=== PATIENT | female | born 1950 | race Caucasian/White ===

== ENCOUNTER → 2017-01-30 | Outpatient (CLI) | payer OTHER ==
--- NOTE | 2017-01-30 13:09 | MAMMOGRAPHY REPORT ---
BILATERAL DIGITAL SCREENING MAMMOGRAM WITH CAD: 01/30/2017 CLINICAL HISTORY: Routine screening. TECHNIQUE: Bilateral CC, MLO and repeat MLO views were obtained with more anterior compression. Curre nt study was also evaluated with a Computer Aided Detection (CAD) system. COMPARISON: Comparison is made to exams dated: 01/28/2016 mammogram, 12/18/2014 mammogram, 09/23/2013 ma mmogram, 09/10/2012 mammogram, 09/08/2011 mammogram, and 02/19/2010 mammogram - [facility] nter. BREAST COMPOSITION: There are scattered areas of fibroglandular density in both breasts. FINDINGS: There is a stable intramammary lymph node in the right upper outer posterior breast. A be nign rim calcification in the anterior right breast and a few punctate microcalcifications in the lef t breast. No suspicious mass, architectural distortion or cluster of microcalcifications is seen. IMPRESSION: ACR BI-RADS CATEGORY 2: BENIGN There is no mammographic evidence of malignancy. A 1 year screening mammogram is recommended. The pa tient will receive written notification of the results. Approximately 10% of breast cancers are not detected with mammography. A negative mammographic report should not delay biopsy if a clinically suggestive mass is present. Marely Minor M.D. ay/:01/30/2017 12:07:36 Prototype Fabricator: Jean-Claude DE LA TORRE(Misael)(M), [facility] letter sent: Normal 1/2 BI-RADS Code: ACR BI-RADS Category 2: Benign
== END | disposition home or self-care (01) ==
LOC: C.MAMM 10:47
PROVIDERS: ATTEND Family Medicine
DX: Z12.31 Encounter for screening mammogram for malignant neoplasm of breast (principal)

== ENCOUNTER 2023-07-04 07:21 | Observation (INO) ==
--- NOTE | 2023-07-04 07:36 | Emergency Department Note ---
ED Provider Note History of Present Illness Chief Complaint: Chest Pain Stated Complaint: CHEST PAIN, PAIN IN BACK Time Seen by Provider: 07/04/23 07:28 73-year-old female who presents to the emergency department with her daughter for evaluation of central chest pain radiating into the back. The patient reports that she noticed the discomfort last evening. The patient reports that she had difficulty sleeping last night, reporting that she had worsening pain when laying down. Patient reports that the pain is worsened with deep breathing. When asked if she has worsening pain with movement, she rotated the back and reported some mild lower central chest discomfort as well. She denies any shortness of breath. The patient is concerned that she has reflux, and takes omeprazole. Patient denies history of hypertension or hypercholesterolemia. Her father in his early 50s from a heart attack. The patient rates her discomfort a 6 out of 10. Home Medications Medication Instructions Recorded Confirmed Type aspirin 81 mg tablet,delayed 81 mg PO DAILY 03/16/21 07/04/23 History release calcium carbonate 600 mg-vitamin 1 tab PO DAILY 03/16/21 07/04/23 History D3 10 mcg (400 unit) tablet (Calcium 600 + D(3)) cholecalciferol (vitamin D3) 25 25 mcg PO DAILY 03/16/21 07/04/23 History mcg (1,000 unit) capsule (Vitamin D3) hydrochlorothiazide 25 mg tablet 25 mg PO DAILY 03/16/21 07/04/23 History multivitamin 1 tab PO DAILY 03/16/21 07/04/23 History omeprazole 20 mg capsule,delayed 20 mg PO DAILYBB 03/16/21 07/04/23 History release gabapentin 300 mg capsule 300 mg PO TID 07/04/23 07/04/23 History mirabegron 50 mg tablet,extended 50 mg PO QAM 07/04/23 07/04/23 History release 24 hr (Myrbetriq) famotidine 10 mg tablet (Acid 10 mg PO BID #30 tabs 07/05/23 Rx Fiber [employer] (famotidine)) ibuprofen 200 mg tablet 200 mg PO TID 7 days #21 tabs 07/05/23 Rx rosuvastatin 5 mg tablet 5 mg PO HS #30 tabs 07/05/23 Rx Allergies Allergy/AdvReac Type Severity Reaction Status Date / Time Sulfa (Sulfonamide Allergy Intermediate Rash Verified 03/16/21 00:27 Antibiotics) Past Med/Surg History Medical History Mnire's disease GERD (gastroesophageal reflux disease) Overactive bladder Social History Smoking Status: Unknown if ever smoked Second Hand Exposure: No; Do You Dip or Chew Tobacco: No; Hx Alcohol Use: No Hx Substance Use: No Preferred Language: Vincentian Communication Ability: Effective Painter Aircraft Required: No Beliefs That Will Affect Care: None Current Living Situation: Family Current Living Situation Comment: lives with daughter Feels Safe at Home: Yes Assistive Devices: None Physical Exam Vital Signs Vital Signs - 24 hr 07/04/23 07:25 07/04/23 07:33 07/04/23 07:40 Temperature 36.8 C Temperature Source Temporal Artery Scan Pulse Rate 95 H 80 Pulse Rate [Right Finger] Pulse Rate from SpO2 Sensor Pulse Rhythm Regular Regular Pulse Rhythm [Right Finger] Pulse Strength Normal Pulse Strength [Right Finger] Respiratory Rate 18 20 Respiratory Effort / Characteristics Non-Labored Spontaneous Respiratory Depth Normal Respiratory Pattern Regular Blood Pressure 162/131 H Blood Pressure [Left Arm] Blood Pressure Mean 141 Blood Pressure Mean [Left Arm] Blood Pressure Position Sitting Blood Pressure Position [Left Arm] Pulse Oximetry 100 95 95 Oxygen Delivery Method Room Air Room Air Sepsis Recent Fever Within 48 Hours No Sepsis New/Unexplained Change in Mental Status No Sepsis Action Taken by Nursing No Action Required 07/04/23 08:00 07/04/23 08:35 07/04/23 08:45 Temperature Temperature Source Pulse Rate 89 78 Pulse Rate [Right Finger] 79 Pulse Rate from SpO2 Sensor 83 Pulse Rhythm Pulse Rhythm [Right Finger] Regular Pulse Strength Pulse Strength [Right Finger] Normal Respiratory Rate 20 17 Respiratory Effort / Characteristics Non-Labored Spontaneous Respiratory Depth Normal Respiratory Pattern Regular Blood Pressure Blood Pressure [Left Arm] 172/72 H Blood Pressure Mean Blood Pressure Mean [Left Arm] 105 Blood Pressure Position Blood Pressure Position [Left Arm] Sitting Pulse Oximetry 95 90 Oxygen Delivery Method Room Air Sepsis Recent Fever Within 48 Hours Sepsis New/Unexplained Change in Mental Status Sepsis Action Taken by Nursing 07/04/23 09:00 07/04/23 09:00 07/04/23 09:30 Temperature Temperature Source Pulse Rate 82 82 Pulse Rate [Right Finger] Pulse Rate from SpO2 Sensor 81 81 Pulse Rhythm Pulse Rhythm [Right Finger] Pulse Strength Pulse Strength [Right Finger] Respiratory Rate 19 17 Respiratory Effort / Characteristics Respiratory Depth Respiratory Pattern Blood Pressure 150/78 H Blood Pressure [Left Arm] Blood Pressure Mean 88 Blood Pressure Mean [Left Arm] Blood Pressure Position Blood Pressure Position [Left Arm] Pulse Oximetry 99 98 Oxygen Delivery Method Sepsis Recent Fever Within 48 Hours Sepsis New/Unexplained Change in Mental Status Sepsis Action Taken by Nursing 07/04/23 09:46 07/04/23 10:03 07/04/23 10:05 Temperature Temperature Source Pulse Rate 78 Pulse Rate [Right Finger] Pulse Rate from SpO2 Sensor 78 80 Pulse Rhythm Pulse Rhythm [Right Finger] Pulse Strength Pulse Strength [Right Finger] Respiratory Rate 19 Respiratory Effort / Characteristics Respiratory Depth Respiratory Pattern Blood Pressure 157/71 H 143/64 H Blood Pressure [Left Arm] Blood Pressure Mean 124 90 Blood Pressure Mean [Left Arm] Blood Pressure Position Blood Pressure Position [Left Arm] Pulse Oximetry 98 100 Oxygen Delivery Method Sepsis Recent Fever Within 48 Hours Sepsis New/Unexplained Change in Mental Status Sepsis Action Taken by Nursing 07/04/23 10:18 07/04/23 10:18 07/04/23 10:30 Temperature Temperature Source Pulse Rate 73 72 Pulse Rate [Right Finger] Pulse Rate from SpO2 Sensor 73 72 Pulse Rhythm Pulse Rhythm [Right Finger] Pulse Strength Pulse Strength [Right Finger] Respiratory Rate 21 16 Respiratory Effort / Characteristics Respiratory Depth Respiratory Pattern Blood Pressure 143/64 H Blood Pressure [Left Arm] Blood Pressure Mean 114 Blood Pressure Mean [Left Arm] Blood Pressure Position Blood Pressure Position [Left Arm] Pulse Oximetry 98 98 Oxygen Delivery Method Sepsis Recent Fever Within 48 Hours Sepsis New/Unexplained Change in Mental Status Sepsis Action Taken by Nursing 07/04/23 12:20 Temperature Temperature Source Pulse Rate Pulse Rate [Right Finger] 81 Pulse Rate from SpO2 Sensor Pulse Rhythm Pulse Rhythm [Right Finger] Pulse Strength Pulse Strength [Right Finger] Respiratory Rate 17 Respiratory Effort / Characteristics Respiratory Depth Respiratory Pattern Blood Pressure Blood Pressure [Left Arm] 151/69 H Blood Pressure Mean Blood Pressure Mean [Left Arm] 96 Blood Pressure Position Blood Pressure Position [Left Arm] Pulse Oximetry 96 Oxygen Delivery Method Sepsis Recent Fever Within 48 Hours Sepsis New/Unexplained Change in Mental Status Sepsis Action Taken by Nursing CONSTITUTIONAL: Healthy and well nourished. Patient does not appear in any acute distress. HEENT: No scleral icterus or conjunctival injection/pallor. NECK: Full active range of motion without discomfort. LYMPHATICS: No cervical chain adenopathy. RESPIRATORY: Clear to auscultation bilaterally with no wheezing, crackles, rhonchi or stridor. CARDIOVASCULAR: Regular rate and rhythm with a grade 3 out of 6 systolic ejection murmur best heard at the right and left upper sternal borders. GASTROINTESTINAL: Bowel sounds present in all quadrants. MUSCULOSKELETAL: Full range of motion of all joints without discomfort. Patient has mild lower extremity edema without any significant pretibial pitting edema. INTEGUMENTARY: No rash or other significant dermatologic conditions noted. HEMATOLOGIC: No ecchymosis or petechiae. PSYCHIATRIC: Positive affect. NEUROLOGIC: No focal neurologic deficits noted. Course Course Patient history and physical exam were performed. Nurses notes were reviewed. Vital signs were reviewed, showing an elevated blood pressure 162/131. IV access was established, and labs were drawn. An ECG was performed and was grossly normal. The patient was placed on library monitor while in the emergency department. Portable chest x-ray did not show a widened mediastinum, pneumothorax or pneumonia. Review of labs did not show any significant abnormalities. Troponin was normal. The patient was hydrated with a normal saline 500 cc bolus, and was also administered Maalox. Upon reassessment, the patient reported that her chest pain was progressively worsening, and now has a headache. At this point, I elected to do the chest CT angiography to rule out dissection. The patient was administered IV morphine and Zofran. CT imaging did not show evidence for aortic dissection, pneumonia, pneumothorax, pericarditis or other acute findings. 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 Repeat ECG does show some inverted T waves now in lead III, otherwise no other concerning conduction abnormalities or ST elevation. Troponin continues to remain normal. Upon reevaluation, the patient reported that she was still having significant discomfort. At this point, the patient was administered sublingual nitroglycerin and IV Tylenol. Throughout the patient's workup, I did discuss the case with Dr. Palacios, ED attending physician who helped to formulate plan of care, and has recommended consultation with hospitalist for further cardiac rule out. The case was then discussed with the patient, who is in agreement to do so. The case was discussed with the [facility] hospitalist (Dr. Lynn), who came to the emergency department for further evaluation. Please see hospitalist dictations for further treatment and final disposition. Administered Medications Discontinued Medications Al Hydrox/Mg Hydrox/Simethicone (Aluminum/Magnesium Susp 30 Ml Udc) 30 ml PO NOW STA Stop: 07/04/23 08:09 Last Admin: 07/04/23 08:34 Dose: 30 ml Documented By: ANANT Aspirin (Aspirin 81 Mg Ectab) 81 mg PO DAILY HERNÁN Stop: 08/04/23 08:59 Last Admin: 07/05/23 08:00 Dose: 81 mg Documented By: CHRISTIAN Calcium/Vitamin D (Calcium 600mg + Vit D 400 Iu Tab) 1 tab PO DAILY HERNÁN Stop: 08/04/23 08:59 Last Admin: 07/05/23 08:01 Dose: 1 tab Documented By: CHRISTIAN Gabapentin (Gabapentin 300 Mg Cap) 300 mg PO TID HERNÁN Stop: 08/03/23 15:30 Last Admin: 07/05/23 13:54 Dose: 300 mg Documented By: Admin: 07/05/23 07:59 Dose: 300 mg Documented By: Admin: 07/04/23 21:13 Dose: 300 mg Documented By: Admin: 07/04/23 16:06 Dose: 300 mg Documented By: DARRIN Heparin Sodium (Porcine) (Heparin Sod 5,000 Unit/0.5 Ml Vial) 5,000 units SQ Q12 HERNÁN Stop: 08/03/23 20:59 Last Admin: 07/05/23 08:01 Dose: 5,000 units Documented By: Admin: 07/04/23 21:13 Dose: 5,000 units Documented By: YEMI Hydrochlorothiazide (Hydrochlorothiazide 25 Mg Tab) 25 mg PO DAILY HERNÁN Stop: 08/04/23 08:59 Last Admin: 07/05/23 08:00 Dose: 25 mg Documented By: CHRISTIAN Sodium Chloride (Nss) 500 mls @ 999 mls/hr IV .Q31M ONE Stop: 07/04/23 08:38 Last Infusion: 07/04/23 10:23 Dose: Infused Documented By: Admin: 07/04/23 08:34 Dose: 999 mls/hr Documented By: ANANT Acetaminophen (Ofirmev) 1,000 mg in 100 mls @ 400 mls/hr IV NOW STA Stop: 07/04/23 11:45 Last Infusion: 07/04/23 12:45 Dose: Infused Documented By: Admin: 02/20/24 12:25 Dose: 400 mls/hr Documented By: SIXTO Ibuprofen (Ibuprofen 200 Mg Tab) 200 mg PO TID HERNÁN Stop: 08/04/23 11:09 Last Admin: 07/05/23 13:54 Dose: 200 mg Documented By: Admin: 07/05/23 11:55 Dose: 200 mg Documented By: CHRISTIAN Ioversol (Optiray 320 125ml) 118 ml IV ONCE ONE Stop: 07/04/23 09:59 Last Admin: 07/04/23 09:53 Dose: 118 ml Documented By: TONY Ketorolac Tromethamine (Ketorolac Tromethamine 15 Mg/Ml Vial) 15 mg IV NOW ONE Stop: 07/04/23 12:21 Last Admin: 07/04/23 12:46 Dose: 15 mg Documented By: SIXTO Morphine Sulfate (Morphine Sulfate 2 Mg/Ml Carp) 2 mg IV NOW STA Stop: 07/04/23 09:26 Last Admin: 07/04/23 10:12 Dose: 2 mg Documented By: ANANT Multivitamins (Multivitamin Tab) 1 tab PO DAILY HERNÁN Stop: 08/04/23 08:59 Last Admin: 07/05/23 08:00 Dose: 1 tab Documented By: CHRISTIAN Nitroglycerin (Nitroglycerin Sl 0.4 Mg/Tab Tab) 0.4 mg SL NOW STA Stop: 07/04/23 11:32 Last Admin: 07/04/23 12:25 Dose: 0.4 mg Documented By: SIXTO Ondansetron HCl (Ondansetron Inj 2 Mg/Ml 2 Ml Vial) 4 mg IV NOW STA Stop: 07/04/23 09:26 Last Admin: 07/04/23 10:13 Dose: 4 mg Documented By: ANANT Pantoprazole Sodium (Pantoprazole 40 Mg Tab) 40 mg PO QAM HERNÁN Stop: 08/04/23 08:59 Last Admin: 07/05/23 08:00 Dose: 40 mg Documented By: CHRISTIAN Tramadol HCl (Tramadol Hcl 50 Mg Tablet) 50 mg PO Q6H PRN PRN Reason: Mod-Sev Pain (Scale 4-10) Stop: 08/03/23 21:12 Last Admin: 07/04/23 21:21 Dose: 50 mg Documented By: YEMI Vibegron (Vibegron 75 Mg Tab) 75 mg PO DAILY HERNÁN Stop: 08/04/23 08:59 Last Admin: 07/05/23 08:01 Dose: 75 mg Documented By: CHRISTIAN Vitamin D (Cholecalciferol 25 Mcg (1000 Units) Tab) 25 mcg PO DAILY [facility] Stop: 08/04/23 08:59 Last Admin: 07/05/23 08:00 Dose: 25 mcg Documented By: CHRISTIAN Medical Decision Making Medical Records Attestation: I reviewed the patient's medical records. Home Medications was personally reviewed by me Laboratory Data Attestation: I reviewed the patient's lab results. 07/05/23 06:24 07/05/23 06:24 Lab Results 07/04/23 07/04/23 Range/Units 07:45 09:44 WBC 10.11 (4.8-10.8) K/ul RBC 4.54 (4.20-5.40) M/uL Hgb 11.8 L (12.0-16.0) g/dl Hct 37.1 (37.0-47.0) % MCV 81.7 (80.0-100.0) fL MCH 26.0 (25.0-34.0) pg MCHC 31.8 L (32.0-36.0) g/dL RDW Std Deviation 38.2 (36.4-46.3) fL RDW Coeff of Emily 12.9 (11.5-14.5) % Plt Count 222 (130-400) K/uL MPV 10.8 (9.4-12.4) fL Immature Gran % (Auto) 0.3 % Neut % (Auto) 80.5 % Lymph % (Auto) 11.4 % Ceiba % (Auto) 7.2 % Eos % (Auto) 0.4 % Baso % (Auto) 0.2 % Neut # (Auto) 8.14 H (1.40-6.50) K/uL Lymph # (Auto) 1.15 L (1.20-3.40) K/uL Ceiba # (Auto) 0.73 H (0.11-0.59) K/uL Eos # (Auto) 0.04 (0.00-0.50) K/uL Baso # (Auto) 0.02 (0.00-0.20) K/uL Immature Gran # (Auto) 0.03 (0.01-0.20) K/uL ESR 40 H (0-30) mm/hr PT 10.9 (9.0-12.0) Seconds INR 1.0 (0.9-1.1) APTT 27 (21-31) Seconds PTT Ratio 1.0 Sodium 139 (136-145) mmol/L Potassium 3.8 (3.5-5.1) mmol/L Chloride 102 (98-107) mmol/L Carbon Dioxide 32 (21-32) mmol/L Anion Gap 5 (3-11) BUN 15 (6-23) mg/dl Creatinine 0.75 (0.6-1.2) mg/dl Est Cr Clr Drug Dosing 71.2 ml/min Est GFR ( Amer) 91.0 ml/min Est GFR (Non-Af Amer) 78.5 ml/min BUN/Creatinine Ratio 20.0 (10-20) Glucose 129 H (70-99(Fasting)) mg/dl Calcium 10.1 (8.6-10.3) mg/dl Total Bilirubin 0.6 (0.2-1.0) mg/dl AST 16 (13-39) U/L ALT 15 (7-52) U/L Alkaline Phosphatase 73 (34-104) U/L Troponin I High Sens 5.6 6.3 (0-14) pg/ml C-Reactive Protein 2.40 H (0-0.5) mg/dl Total Protein 7.8 (6.0-8.3) gm/dl Albumin 4.6 (3.4-5.0) gm/dl Globulin 3.2 (2.5-4.0) gm/dl Albumin/Globulin Ratio 1.4 (0.9-2) Lipase 11 (11-82) U/L Imaging Data Attestation: I personally reviewed and interpreted this imaging study as follows: My Impression: My interpretation of a portable chest x-ray did not show evidence for pneumonia, pneumothorax or cardiomegaly. Chest CT angiography did not show evidence for aortic dissection, pneumothorax, pericarditis or other acute findings. 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 Radiologist reports were also reviewed with concurrence. Radiologist's Impression: Chest X-Ray 07/04/23 07:33 XR chest 1V portable HISTORY: Chest pain, nonspecific COMPARISON: None. FINDINGS: The lungs are clear. Cardiac silhouette is normal in size. No pleural effusions. No pneumothorax. IMPRESSION: No acute process. ACT 112: Negative or not required by law. Electronically signed by: Abelardo Moeller M.D. 07/04/2023 9:29 AM Chest CTA 07/04/23 09:22 CHEST CTA for AORTIC DISSECTION CT DOSE: 1468. mGy.cm HISTORY: Chest and back pain. Assess for an aortic dissection. TECHNIQUE: Multiaxial CT images of the chest were performed both before and after the intravenous administration of contrast to evaluate the aorta. 3D/MIP images were also obtained. Sagittal and coronal reformations were also reviewed. A dose lowering technique was utilized adhering to the principles of ALARA. COMPARISON STUDY: None. FINDINGS: Noncontrast imaging through the chest shows no evidence for an intramural hematoma within the thoracic aorta. There is a normal caliber thoracic aorta with no evidence for a dissection. Mild calcified plaque within the thoracic aorta. The central pulmonary arteries are patent. No acute fractures within the chest. No pneumothorax. The central airways are patent. Mild dependent changes seen at the lung bases. A 3 mm subpleural nodule on the left major fissure best seen on image 90. A 6 mm nodule within the base of the lingula on image 131. This is partially obscured by the motion artifact. No focal lung consolidations to suggest a pneumonia. No evidence for pulmonary edema. Punctate calcified granuloma within the right lung apex. Normal thyroid gland. Limited views of the upper abdomen demonstrate a normal liver and adrenal glands. Punctate calcified granulomas seen within the spleen. Normal esophagus. The heart is normal in size. No pleural or pericardial effusions. No mediastinal or hilar lymphadenopathy. IMPRESSION: 1. No evidence for an aortic dissection. 2. No focal lung consolidations to suggest a pneumonia. 3. A 6 mm indeterminate pulmonary nodule within the lingula. Please refer to the chart below for recommended follow-up. 4. Additional findings as described above. Please refer to below summary of Fleischner criteria recommendations for follow- up of incidental CT nodules (Jai Nguyen, Guidelines for management of small pulmonary nodules detected on CT scans: A statement from the Fleischner Society, Radiology 237: [id number].) SOLID NODULES Solitary nodule size: <6 mm * Low risk patients: no follow-up needed * high risk patients: optional CT at 12 months Solitary nodule size: 6-8 mm * Low risk patients: follow-up at 6-12 months, then consider further follow-up at 18-24 months * high risk patients: initial follow-up CT at 6-12 months and then at 18-24 months if no change Solitary nodule size: >8 mm * either low or high risk patients - consider follow-up CT at 3 months, and/or CT-PET, and/or biopsy Multiple nodules size: <6 mm * Low risk patients: no routine follow-up * high risk patients: optional CT at 12 months Multiple nodules size: 6-8 mm * Low risk patients: follow-up at 3-6 months, then consider further follow-up at 18-24 months * high risk patients: follow-up at 3-6 months, then at 18-24 months if no change Multiple nodules size: >8 mm * Low risk patients: follow-up at 3-6 months, then consider further follow-up at 18-24 months * high risk patients: follow-up at 3-6 months, then at 18-24 months if no change Note: newly detected indeterminate nodule in persons 35 years of age or older. * Low risk patients: minimal or absent history of smoking and/or other known risk factors * high risk patients: history of smoking or of other known risk factors (e.g. first degree relative with lung cancer, or exposure to asbestos, radon, uranium) * if a nodule up to 8 mm is partly solid or is ground glass further follow-up is required after 24 months to exclude possible slow growing adenocarcinoma (KIRK) SUBSOLID NODULES Solitary pure ground-glass nodule * nodule size <6 mm - no CT follow-up required * nodule size >=6 mm - follow-up CT at 6-12 months, then every 2 years until 5 years Solitary part-solid nodule * nodule size <6 mm - no CT follow-up required * nodule size >=6 mm - follow-up CT at 3-6 months. If unchanged, and solid component remains <6 mm, then annual follow-up for 5 years Multiple subsolid nodules * nodule size <6 mm - follow-up CT at 3-6 months, consider further follow-up at 2 and 4 years if stable * nodule size >=6 mm - follow-up CT at 3-6 months, subsequent management based on the most suspicious nodule(s) ACT 112: Positive. There are findings on this exam that require communication between the performing entity and the patient following Patient Test Result Information Act ([place] Act 112) guidelines. Electronically signed by: Abelardo Moeller M.D. 07/04/2023 10:53 AM ECG Data Attestation: I personally reviewed and interpreted this ECG as follows: Indication: + chest pain Rate (beats per minute): 80 Rhythm: + normal sinus ECG Intervals/blocks: + Incomplete right bundle branch block, + Normal QRS, + Normal QT and + Normal IN ECG [place]: + Normal ECG ST segments: + Normal ST segments Comparison ECG Date: no prior available Additional Comments: Repeat ECG approximately 3 hours later shows a normal sinus rhythm of 72 bpm with an inverted T wave in precordial lead III, otherwise no other concerning findings or signs of infarct. MDM Narrative Cardiac monitoring: An order was placed for continuous cardiac monitoring. The monitor shows a rate of 80 bpm with a normal sinus rhythm. hall monitor history was reviewed throughout the evaluation, and no dysrhythmias were noted. See ED Course section for further details of today's visit. The patient presents with complaint of substernal pain radiating into the back. Her workup today, including ECG and troponin x 2, repeated 3 hours apart, does not show any evidence for infarct. Because of the patient's discomfort radiating from the substernal region to the back, as well as worsening discomfort while in the emergency department, chest CT angiography was performed and did not show evidence for dissection, pneumothorax, pericarditis or other concerning findings. Review of labs did not show any acute coagulopathies. CMP was normal other than a mildly elevated random glucose. The patient reports a prior history of reflux, but reports that this does feel different. It is noted that IV Pepcid and Maalox did not provide any relief of symptoms. Abdomen exam is otherwise benign. HEART score is 1, only given the fact that her father had a history of myocardial infarction at a young age. Patient denies any shortness of breath, and PERC score is negative. Given the patient's persistent chest pain, I did feel that further observation and cardiac rule out is warranted. The case was discussed with Dr. Palacios, ED physician, who helped to formulate plan of care, and agrees with observation for cardiac rule out. Attending Attestation: Benjamin Palacios I have reviewed the advanced practitioner's documentation and agree with the plan of care. CTA chest reviewed w/o finding of dissection. Trop x2 reassuring but still with pain. Plan for observation. I accept the responsibility for the associated risk of managing the patient. Impression Substernal chest pain, Headache, History of gastroesophageal reflux (GERD) Discharge Plan Visit Data Chief Complaint: Chest Pain Stated Complaint: CHEST PAIN, PAIN IN BACK ED Provider: Bebeto Palacios ED Midlevel Provider: Raheem Ocampo Discharge Problem: Substernal chest pain, Headache, History of gastroesophageal reflux (GERD) Patient Disposition: Admitted As Inpatient Discharge Instructions Interventions: ED Discharge Assessment Last Done: 07/04/23 20:46
[2023-07-04 08:00] LABS: Basophils # (auto) 0.02 K/uL (0.00-0.20); Basophils % (auto) 0.2 %; Eosinophils # (auto) 0.04 K/uL (0.00-0.50); Eosinophils % (auto) 0.4 %; Hematocrit (blood only) 37.1 % (37.0-47.0); Hemoglobin 11.8 g/dl (12.0-16.0); Immature Granulocytes # (auto) 0.03 K/uL (0.01-0.20); Immature Granulocytes % (auto) 0.3 %; Lymphocytes # (auto) 1.15 K/uL (1.20-3.40); Lymphocytes % (auto) 11.4 %; Mean Corpuscular Hgb Conc 31.8 g/dL (32.0-36.0); Mean Corpuscular Volume 81.7 fL (80.0-100.0); Mean Platelet Volume 10.8 fL (9.4-12.4); Monocytes # (auto) 0.73 K/uL (0.11-0.59); Monocytes % (auto) 7.2 %; Neutrophils # (auto) 8.14 K/uL (1.40-6.50); Neutrophils % (auto) 80.5 %; Platelet Count 222 K/uL (130-400); RDW Coefficient of Variation 12.9 % (11.5-14.5); RDW Standard Deviation 38.2 fL (36.4-46.3); Red Blood Count 4.54 M/uL (4.20-5.40); White Blood Count 10.11 K/ul (4.8-10.8)
[2023-07-04 08:25] LABS: Albumin Globulin Ratio 1.4 (0.9-2); Albumin Level 4.6 gm/dl (3.4-5.0); Bilirubin,Total 0.6 mg/dl (0.2-1.0); Calcium 10.1 mg/dl (8.6-10.3); Creatinine Clr Calc Pharmacy 71.2 ml/min; Est GFR (Non-African American) 78.5 ml/min; Globulin 3.2 gm/dl (2.5-4.0); Potassium 3.8 mmol/L (3.5-5.1); Total Protein 7.8 gm/dl (6.0-8.3)
[2023-07-04 08:31] LABS: Troponin I High Sensitivity 5.6 pg/ml (0-14)
[2023-07-04] MEDS: SODIUM CHLORIDE 0.9% 500 ML IV ONE (08:34)
[2023-07-04] MEDS: ALUMINUM/MAGNESIUM SUSP 30 ML UDC PO STA (08:34)
[2023-07-04 08:45] LABS: Partial Thromboplastin Time 27 Seconds (21-31); Prothrombin Time 10.9 Seconds (9.0-12.0)
--- NOTE | 2023-07-04 09:30 | XRay Report ---
XR chest 1V portable HISTORY: Chest pain, nonspecific COMPARISON: None. FINDINGS: The lungs are clear. Cardiac silhouette is normal in size. No pleural effusions. No pneumot horax. IMPRESSION: No acute process. ACT 112: Negative or not required by law. Electronically signed by: Abelardo Moeller M.D. 07/04/2023 9:29 AM
[2023-07-04] MEDS: OPTIRAY 320 125ml IV ONE (09:53)
[2023-07-04] MEDS: MoRPHine SULFATE 2 MG/ML CARP IV STA (10:12)
[2023-07-04] MEDS: ONDANSETRON INJ 2 MG/ML 2 ML VIAL IV STA (10:13)
[2023-07-04 10:25] LABS: Troponin I High Sensitivity 6.3 pg/ml (0-14)
--- NOTE | 2023-07-04 10:54 | CT Scan Report ---
CHEST CTA for AORTIC DISSECTION CT DOSE: 1468. mGy.cm HISTORY: Chest and back pain. Assess for an aortic dissection. TECHNIQUE: Multiaxial CT images of the chest were performed both before and after the intravenous adm inistration of contrast to evaluate the aorta. 3D/MIP images were also obtained. Sagittal and coronal reformations were also reviewed. A dose lowering technique was utilized adhering to the principles of ALARA. COMPARISON STUDY: None. FINDINGS: Noncontrast imaging through the chest shows no evidence for an intramural hematoma within t he thoracic aorta. There is a normal caliber thoracic aorta with no evidence for a dissection. Mild c alcified plaque within the thoracic aorta. The central pulmonary arteries are patent. No acute fractu res within the chest. No pneumothorax. The central airways are patent. Mild dependent changes seen at the lung bases. A 3 mm subpleural nodule on the left major fissure best seen on image 90. A 6 mm nod ule within the base of the lingula on image 131. This is partially obscured by the motion artifact. N o focal lung consolidations to suggest a pneumonia. No evidence for pulmonary edema. Punctate calcifi ed granuloma within the right lung apex. Normal thyroid gland. Limited views of the upper abdomen dem onstrate a normal liver and adrenal glands. Punctate calcified granulomas seen within the spleen. Nor mal esophagus. The heart is normal in size. No pleural or pericardial effusions. No mediastinal or hi lar lymphadenopathy. IMPRESSION: 1. No evidence for an aortic dissection. 2. No focal lung consolidations to suggest a pneumonia. 3. A 6 mm indeterminate pulmonary nodule within the lingula. Please refer to the chart below for luana mmended follow-up. 4. Additional findings as described above. Please refer to below summary of Fleischner criteria recommendations for follow-up of incidental CT n odules (Jai Nguyen, Guidelines for management of small pulmonary nodules detected on CT scans: A sta tement from the Fleischner Society, Radiology 237: [phone].) SOLID NODULES Solitary nodule size: <6 mm * Low risk patients: no follow-up needed * high risk patients: optional CT at 12 months Solitary nodule size: 6-8 mm * Low risk patients: follow-up at 6-12 months, then consider further follow-up at 18-24 months * high risk patients: initial follow-up CT at 6-12 months and then at 18-24 months if no change Solitary nodule size: >8 mm * either low or high risk patients - consider follow-up CT at 3 months, and/or CT-PET, and/or biopsy Multiple nodules size: <6 mm * Low risk patients: no routine follow-up * high risk patients: optional CT at 12 months Multiple nodules size: 6-8 mm * Low risk patients: follow-up at 3-6 months, then consider further follow-up at 18-24 months * high risk patients: follow-up at 3-6 months, then at 18-24 months if no change Multiple nodules size: >8 mm * Low risk patients: follow-up at 3-6 months, then consider further follow-up at 18-24 months * high risk patients: follow-up at 3-6 months, then at 18-24 months if no change Note: newly detected indeterminate nodule in persons 35 years of age or older. * Low risk patients: minimal or absent history of smoking and/or other known risk factors * high risk patients: history of smoking or of other known risk factors (e.g. first degree relative with lung cancer, or exposure to asbestos, radon, uranium) * if a nodule up to 8 mm is partly solid or is ground glass further follow-up is required after 24 m onths to exclude possible slow growing adenocarcinoma (KIRK) SUBSOLID NODULES Solitary pure ground-glass nodule * nodule size <6 mm - no CT follow-up required * nodule size >=6 mm - follow-up CT at 6-12 months, then every 2 years until 5 years Solitary part-solid nodule * nodule size <6 mm - no CT follow-up required * nodule size >=6 mm - follow-up CT at 3-6 months. If unchanged, and solid component remains <6 mm, then annual follow-up for 5 years Multiple subsolid nodules * nodule size <6 mm - follow-up CT at 3-6 months, consider further follow-up at 2 and 4 years if sta ble * nodule size >=6 mm - follow-up CT at 3-6 months, subsequent management based on the most suspiciou s nodule(s) ACT 112: Positive. There are findings on this exam that require communication between the performing entity and the patient following Patient Test Result Information Act ([place] Act 112) guidelines. Electronically signed by: Abelardo Moeller M.D. 07/04/2023 10:53 AM
--- NOTE | 2023-07-04 11:12 | Electrocardiogram Report ---
Test Reason : Blood Pressure : / mmHG Vent. Rate : 080 BPM Atrial Rate : 080 BPM P-R Int : 132 ms QRS Dur : 112 ms QT Int : 386 ms P-R-T Axes : 053 020 056 degrees QTc Int : 445 ms Normal sinus rhythm Incomplete right bundle branch block Borderline ECG No previous ECGs available Confirmed by Brad Torres ([id number]) on 07/04/2023 11:11:45 AM Referred By: REFERRED SELF Confirmed By:Marquise Torres
--- NOTE | 2023-07-04 11:20 | Electrocardiogram Report ---
Test Reason : Blood Pressure : / mmHG Vent. Rate : 072 BPM Atrial Rate : 072 BPM P-R Int : 144 ms QRS Dur : 104 ms QT Int : 396 ms P-R-T Axes : 043 -04 019 degrees QTc Int : 433 ms Normal sinus rhythm Incomplete right bundle branch block Abnormal ECG When compared with ECG of 04-JUL-2023 07:38, (unconfirmed) T wave inversion now evident in Inferior leads Inverted T waves have replaced nonspecific T wave abnormality in Anterior leads Confirmed by Brad Torres ([id number]) on 07/04/2023 11:19:27 AM Referred By: REFERRED SELF Confirmed By:Marquise Torres
--- OUTSIDE RECORDS SUMMARY | 2023-07-04 11:30 | External Medical Summary | Summary of Care ---
Author Name Unknown Organization [facility] Address [address] [place] [address] Phone [phone] Care Team Providers Care Frame Table Operator Name Role Phone Luis Courtney MD Primary Care Provider [phone] Reason for Visit * Reason Comments Re-Check Encounter Details Date Type Department Care Team ([facility] Contact Info) Description 04/20/2023 1:35 PM EST Office Visit Urogynecology Marleny Aaron [address] [place] [address] Flower Griggs PA-C [address] [place] [address] Nurse Joyce Aaron [address] [place] [phone] OAB (overactive bladder)*; Urge incontinence Allergies Active Allergy Reactions Criticality Noted Date Comments Amoxicillin Itching 05/22/2013 Sulfa Antibiotics 02/18/2005 Rash age late 50's documented as of this encounter (statuses as of 04/20/2023) Medications Medication Sig Dispensed Refills Start Date End Date Status CALCIUM 600 + D 600-200 MG-UNIT PO TABS 1 twice daily 0 0 02/11/2005 Active ASPIRIN 81 MG PO CHEWIndications:Oth er specified prophylactic or treatment measure One pill by mouth once a day in AM, 60 minutes before sulindac 100 5 02/06/2009 Active CENTRUM SILVER ULTRA WOMENS PO TABS 1 TABLET DAILY 30 Tab 0 01/04/2010 Active VITAMIN D 1000 UNITS PO CAPS Take by mouth. 30 Cap 11 02/11/2012 Active zoster vac recomb adjuvanted (SHINGRIX) 50 MCG/0.5ML injectionIndication s:Need for shingles vaccine Inject 0.5 mL into a large muscle now and repeat dose in 60 to 180 days 1 Each 1 03/06/2019 Active Additional Information Patient not taking.Reported on 03/17/2022 Triamcinolone Acetonide 0.1 % External Cream (ARISTOCORT)Indicat ions:Hand dermatitis Apply topically to affected area 2 times a day. To affected area. 60 g 5 03/11/2020 Active Vitamin C 1000 MG Oral Tablet Take 1 Tablet by mouth in the morning. 0 Active Gabapentin 300 MG Oral Capsule (Neurontin)Indicati ons:Idiopathic progressive neuropathy Take 1 Capsule by mouth in the morning and 1 Capsule at noon and 1 Capsule before bedtime. 90 Capsule 10 04/14/2023 Active Omeprazole 20 MG Oral Capsule Delayed Release (PriLOSEC)Indicatio ns:Esophageal dysphagia Take 1 Capsule by mouth in the morning. 1 hour before the first meal of the day.. 90 Capsule 3 04/14/2023 Active hydroCHLOROthiazide 25 MG Oral Tablet (Hydrodiuril)Indica tions:Meniere's disease of left ear Take 1 Tablet by mouth in the morning. 90 Tablet 3 04/14/2023 Active Myrbetriq 50 MG Oral Tablet Extended Release 24 Hour (Mirabegron ER) Take 1 Tablet by mouth in the morning. 90 Tablet 3 04/14/2023 Active documented as of this encounter (statuses as of 04/20/2023) Active Problems Problem Noted Date Diagnosed Date Aortic valve stenosis 09/09/2021 Spastic bladder 03/11/2021 Resting tremor 03/11/2020 Prediabetes 06/27/2017 Overview: Per Prediabetes protocol #1 Irritable bowel syndrome without diarrhea 2016 Neuropathy, peripheral 04/01/2014 Vitamin D deficiency 04/03/2010 Dyslipidemia, goal LDL below 100 03/02/2010 ADVANCE DIRECTIVE INFORMATION 02/11/2005 Overview: No, Advance Directive brochure given to patient. Osteoporosis 12/11/2000 Meniere's disease Esotropia Dermatophytosis of nail documented as of this encounter (statuses as of 04/20/2023) Resolved Problems Problem Noted Date Diagnosed Date Resolved Date Mild aortic stenosis by gomezo r echocardiography 03/11/2021 09/09/2021 Aortic valve sclerosis 03/02/201809/09 Viral URI with cough 06/22/2015 017 Chronic rhinitis 06/22/2015 03/01/2017 Other nonspecific abnormal finding 03/02/2010 03/06/2019 Overview: granuloma's in lung, liver, spleen KNEE PAIN, RIGHT 06/11/2002 03/01/2017 DYSFUNCT EUSTACHIAN TUBE 01/06/2000 Postmenopausal atrophic vaginitis 07/14/1999 03/01/2017 IRON DEFIC ANEMIA NOS 2016 SENSORNEUR LOSS COMB TYP documented as of this encounter (statuses as of 04/20/2023) Immunizations Name Administration Dates Next Due COVID-19 mRNA, LNP-s, No Pre serve, 2-Dose Series ([email or web address]) 02/23/2021,07/24/2020,07/03/2020 Pneumococcal Conjugate Vacc, 13 Valent (Prevnar) 02/26/2015 Pneumococcal Polysaccharide PPV23 (Pneumovax) 02/24/2014 SEASONAL INFLUENZA, PF, 6 M & Above, IM , (FLULAVAL or FLUZONE) 03/06/2019,03/16/2018,03/01/2017 03/01/2018 Season Influenza, Quad, PF, Adjuvanted, 65+ Yrs, IM (FLUAD) 02/17/2021,03/11/2020 Seasonal Influenza, Quadriva lent Hd (Fluzone Hd) 03/21/2023,03/17/2022 Seasonal Influenza, Quadriva lent, No Preserve, IM 02/29/2016,02/26/2015 Seasonal Influenza, Split, I IV3, With Preserve, Inj 02/24/2014,01/29/2013,04/18/2012,10/09/2009,03/10/2008 01/29/2014 TDAP (age 10 and older)(Boostrix) 03/16/2018 TDAP (age 11 and older)(Adacel) 12/11/2007 Varicella Zoster Vaccine (Adult) 08/07/2012 documented as of this encounter Social History Tobacco Use Types Packs/Day Years Used Date Smoking Tobacco: Never Smokeless Tobacco: Never Alcohol Use Standard Drinks/Week Comments No 0 (1 standard drink = 0.6 oz pur e alcohol) PHQ-2 Answer Date Recorded PHQ Adult Total Score 8 09/14/2022 Hunger Vital Sign Answer Date Recorded Within the past 12 months, y ou worried that your food would run out before you got the money to buy more. Never true 09/15/19 23 Within the past 12 months, t he food you bought just didn't last and you didn't have money to get more. Never true 09/14/2022 Sex and Gender Information Value Date Recorded Sex Assigned at Female 11/12/2018 3:59 PM EDT Gender Identity Female 11/12/2018 3:59 PM EDT Sexual Orientation Straight 11/12/2018 3: 59 PM EDT Job Start Date Occupation Industry Not on file Not on file Not on file documented as of this encounter Last Filed Vital Signs Vital Sign Reading Time Taken Comments Blood Pressure 122/70 04/20/2023 1:39 PM EST Pulse - - Temperature - - Respiratory Rate - - Oxygen Saturation - - Inhaled Oxygen Concentration - - Weight 90.3 kg (199 lb) 04/20/2023 1:39 PM EST Height 177.8 cm (5' 10") 04/20/2023 1:39 PM EST Body Mass Index 28.55 04/20/2023 1:39 PM EST documented in this encounter Progress Notes * Flower Griggs PA-C - 04/20/2023 1:42 PM EST Anna Rodas Davidcarlin presents for a follow up visit at [facility]ologic[facility]ision. She was previously seen for N32.81 OAB (overactive bladder) (primary encounter diagnosis) N39.41 Urge incontinence Since last seen, continues to take Mybretriq 50mg. Doing well. Daytime frequency q2-3 hours. Nocturia 0-1x nightly. Has urge incontinence 1x daily. Rare leakage with cough or sneeze. Denies sense of incomplete bladder emptying. Urinary: No urgency, frequency or dysuria. GI: No concerns. Bowels moving well. 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 Overall is pleased with current treatment plan and would like to continue current treatment. No complaints or concerns at this time. Review of patient's allergies indicates: Allergen Reactions Amoxicillin Itching Bactrim [Sulfa Antibiotics] Rash age late 50's Current Outpatient Medications Medication Sig Dispense Refill CALCIUM 600 + D 600-200 MG-UNIT PO TABS 1 twice daily 0 0 ASPIRIN 81 MG PO CHEW One pill by mouth once a day in AM, 60 minutes before sulindac 100 5 CENTRUM SILVER ULTRA WOMENS PO TABS 1 TABLET DAILY 30 Tab 0 VITAMIN D 1000 UNITS PO CAPS Take by mouth. 30 Cap 11 Vitamin C 1000 MG Oral Tablet Take 1 Tablet by mouth in the morning. Gabapentin 300 MG Oral Capsule (Neurontin) Take 1 Capsule by mouth in the morning and 1 Capsule at noon and 1 Capsule before bedtime. 90 Capsule 10 Omeprazole 20 MG Oral Capsule Delayed Release (PriLOSEC) Take 1 Capsule by mouth in the morning. 1 hour before the first meal of the day.. 90 Capsule 3 hydroCHLOROthiazide 25 MG Oral Tablet (Hydrodiuril) Take 1 Tablet by mouth in the morning. 90 Tablet 3 Myrbetriq 50 MG Oral Tablet Extended Release 24 Hour (Mirabegron ER) Take 1 Tablet by mouth in the morning. 90 Tablet 3 zoster vac recomb adjuvanted (SHINGRIX) 50 MCG/0.5ML injection Inject 0.5 mL into a large muscle now and repeat dose in 60 to 180 days (Patient not taking: Reported on 03/17/2022 ) 1 Each 1 Triamcinolone Acetonide 0.1 % External Cream (ARISTOCORT) Apply topically to affected area 2 times a day. To affected area. 60 g 5 No current facility-administered medications for this visit. ROS: Per HPI BP 122/70 | Ht 1.778 m (5' 10") | Wt 90.3 kg (199 lb) | BMI 28.55 kg/m | BSA 2.11 m GENERAL: alert, healthy, no distress, well nourished and well developed SKIN: Skin color, texture, and turgor normal. No rashes or significant lesions Impression: This is a 73 year old with N32.81 OAB (overactive bladder) (primary encounter diagnosis) N39.41 Urge incontinence Plan: Continue Myrbetriq 50mg daily. Continue limiting caffeine intake and practicing daily Kegel exercises. Reviewed alternative OAB management options including other medication, cystoscopic botox injections and sacral neuromodulation. Risks and benefits reviewed of each. She is pleased with current treatment plan as symptoms are much improved but continues to have some urge incontinence. She would liketo consider options and will contact office if she would like to try a different option. Educational materials provided. RTC in 6 months or sooner as needed. I spent a total of 20-29 minutes (exact time 20 mins) on the date of service in preparation, delivery, and documentation of the care provided to Anna Solomon excluding any time spent in the performance of separately billed services. Flower Griggs PA-C 04/20/2023 1:42 PM Flower Griggs PA-C Urogynecology [address] [place] [address] documented in this encounter Nursing Notes * Amita Quinn RN - 04/20/2023 1:41 PM EST Pt here for med recheck. Today feels like she is voiding more than before but otherwise doing better. documented in this encounter Plan of Treatment Upcoming Encounters Date Type Department Care Team (Late st Contact Info) Description 04/24/2023 1:20 PM EST Office Visit Neurology [facility] Lynda Wright [address] [place] [address] Rula King PA-C [address] [place] [address] 05/05/2023 8:45 AM EST Cardiac Studies Cardiac Studies, [address] [place] [address] 09/20/2023 8:20 AM EDT Office Visit [facility] [address] [place] [address] Luis Courtney MD [address] [place] [address] 10/20/2023 11:20 AM EDT [facility] [address] [place] [address] Flower Griggs PA-C [address] [place] [address] Scheduled Procedures Name Priority Associated Diagnoses Date/Ti me COLONOSCOPY FLEXIBLE PROXIMA L DIAGNOSTIC Recall Special screening for malignant neoplasms, colon Health Maintenance Due Date Last Done Comments Cologuard 1994 Sigmoidoscopy 1994 Fecal Occult Blood Test 02/10/2002 02/11/20, 12/25/1999, 08/22/1996 Zoster Vaccines (2 of 3) 10/02/2012 08/07/2012 *BISPHONATE OR OTHER ACCEPTABLE MEDICATION NEEDED FOR OSTEOPOROSIS (REFER TO SMARTSET #1146) 05/16/2014 DXA Scan 02/20/2021 02/20/2019, 01/14, 12/27/2010, Additional history exists COVID-19 Vaccine ( season) 2023 02/23/2021, 07/24/2020, 07/03/2020 Depression Screening 09/15/2023 09/14/2022 Colonoscopy 03/04/2024 03/04/2014, 02/13, 04/26/2004 Colorectal Cancer Screening 03/04/2024 HbA1c 03/17/2024 03/17/2023, 05/2021, 03/11/2021, Additional history exists Mammogram 04/18/2024 04/18/2023, 03/17, 02/17/2021, Additional history exists DTaP,Tdap,and Td Vaccines (3 - Td or Tdap) 03/16/2028 03/16/2018, 12/11/2007, 07/24/1995 Lipid Panel 03/17/2028 03/17/2023, 11/0 05/2021, 03/11/2021, Additional history exists Pneumococcal Vaccine: 65+ Years Completed 02/26/2015, 02/24/2014 VITAMIN D LEVEL ONCE IN A LIFETIME-USE SMARTSET# [id number] Completed 03/17/2023, 03/15/2022, 03/12/2020, Additional history exists Influenza Vaccine (FLU shot) Completed 11/2022, 03/17/2022, 02/17/2021, Additional history exists GARDASIL-HPV IMMUNIZATION SERIES Aged Out No longer eligible based on patient's age to complete this topic Hepatitis B Aged Out No longer eligi ble based on patient's age to complete this topic MENINGOCOCCAL (MENACTRA/MENVEO) Aged Out No longer eligible based on patient's age to complete this topic documented as of this encounter Medical Devices Not on filedocumented as of this encounter Visit Diagnoses Diagnosis OAB (overactive bladder)- Primary Hypertonicity of bladder Urge incontinence documented in this encounter Care Teams Frame Table Operator Relationship Specialty Start Date End Date Luis Courtney MD [address] [place] [address] PCP - General 05/15/1997 documented as of this encounter
--- OUTSIDE RECORDS SUMMARY | 2023-07-04 11:30 | External Medical Summary | Summary of Care ---
Author Name Unknown Organization [facility] Address [address] [place] [address] Phone [phone] Care Team Providers Care Surgical Physician Assistant Name Role Phone Luis Courtney MD Primary Care Provider [phone] Reason for Visit * Reason Comments Return Neuro Parkinson's Disease Encounter Details Date Type Department Care Team ([facility] Contact Info) Description 04/24/2023 1:20 PM EST Office Visit Neurology [facility] [place] [address] [facility] [place] [address] Rula King PA-C [address] [facility] [place] [address] Parkinson's disease without dyskinesia or fluctuating manifestations*; Idiopathic peripheral neuropathy; Resting tremor Allergies Active Allergy Reactions Criticality Noted Date Comments Amoxicillin Itching 05/22/2013 Sulfa Antibiotics 02/18/2005 Rash age late 50's documented as of this encounter (statuses as of 04/24/2023) Medications Medication Sig Dispensed Refills Start Date [...] as of this encounter (statuses as of 04/24/2023) Active Problems Problem Noted Date Diagnosed Date [...] as of this encounter (statuses as of 04/24/2023) Resolved Problems Problem Noted Date Diagnosed Date Resolved Date Mild aortic stenosis by prio r echocardiography 03/11/2021 09/09/2021 Aortic valve sclerosis 03/02/201809/09 Viral URI with cough 06/22/2015 017 Chronic rhinitis 06/22/2015 03/01/2017 Other nonspecific abnormal finding 03/02/2010 03/06/2019 Overview: granuloma's in lung, liver, spleen KNEE PAIN, RIGHT 06/11/2002 03/01/2017 DYSFUNCT EUSTACHIAN TUBE 01/06/2000 Postmenopausal atrophic vaginitis 07/14/1999 03/01/2017 IRON DEFIC ANEMIA NOS 2016 SENSORNEUR LOSS COMB TYP documented as of this encounter (statuses as of 04/24/2023) Immunizations Name Administration Dates Next Due COVID-19 mRNA, LNP-s, No Pre serve, 2-Dose Series ([place]) 02/23/2021,07/24/2020,07/03/2020 Pneumococcal Conjugate Vacc, 13 Valent (Prevnar) 02/26/2015 Pneumococcal Polysaccharide PPV23 (Pneumovax) 02/24/2014 SEASONAL INFLUENZA, PF, 6 M & Above, IM , (FLULAVAL or FLUZONE) 03/06/2019,03/16/2018,03/01/2017 03/01/2018 Season Influenza, Quad, PF, Adjuvanted, 65+ Yrs, IM (FLUAD) 02/17/2021,03/11/2020 Seasonal Influenza, Quadriva lent Hd (Fluzone Hd) 03/21/2023,03/17/2022 Seasonal Influenza, Quadriva lent, No Preserve, IM 02/29/2016,02/26/2015 Seasonal Influenza, Split, I IV3, With Preserve, Inj 02/24/2014,01/29/2013,04/18/2012,09/2009,03/10/2008 01/29/2014 TDAP (age 10 and older)(Boostrix) 03/16/2018 [...] Sign Reading Time Taken Comments Blood Pressure 124/70 04/24/2023 1:17 PM EST Pulse 72 04/24/2023 1:17 PM EST Temperature 36.3 C (97.4 F) 04/24/2023 1:17 PM ES T Respiratory Rate 16 04/24/2023 1:17 PM EST Oxygen Saturation 99% 04/24/2023 1:17 PM EST Inhaled Oxygen Concentration - - Weight 89.4 kg (197 lb 1.6 oz) 04/24/2023 1:17 P M EST Height - - Body Mass Index 28.28 04/20/2023 1:39 PM EST documented in this encounter Progress Notes * Rula King PA-C - 04/24/2023 1:20 PM EST HISTORY & PHYSICAL EXAMINATION - NEUROLOGY Name: Anna Solomon Date: 04/24/2023 Time: 1:20 PM Referring Provider: Rula King, * Chief Complaint: Chief Complaint Patient presents with Return Neuro Parkinson's Disease This is a 73 year old right handed woman returns today for follow up for PD and neuropathy. HPI She was [place] [address] Back for neuropathy. She has a tremor that started years ago but recently she notices it more. She has a brother that has parkinson's. The tremor does not bother her when she is writing, eating, or drinking. She noticed it more when she is stressed or upset. She is having problems with her balance but she does have neuropathy and menieres disease. She is a non smoker, no EtoH use, no caffeine use, no other drugs. In June 2022 her passed . The tremor is still not too bothersome. It is most evident when she is resting and she is praying. She still does not feel she wants to start a medication for it. She was started on gabapentin for her neuropathy by her PCP. She has mainly numbness but does still have the pebble feeling under her feet. The 300 mg gabapentin is making her drowsy. Denies CP, SOB, abdominal pain, one sided weakness, numbness tingling , N, V. I have reviewed the patient's medications and allergies, past medical, surgical, social and family history, updating these as appropriate. See Histories section of the electronic medical record for adisplay of this information. 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 Heart Disorder Father NH at age 52 Medications: Are you taking your medications? yes Current Outpatient Medications Medication Sig Dispense Refill [...] CAPS Take by mouth. 30 Cap 11 zoster vac recomb adjuvanted (SHINGRIX) 50 MCG/0.5ML injection Inject 0.5 mL into a large muscle now and repeat dose in 60 to 180 days (Patient not taking: Reported on 03/17/2022 ) 1 Each 1 Triamcinolone Acetonide 0.1 % External Cream (ARISTOCORT) Apply topically to affected area 2 times a day. To affected area. 60 g 5 Vitamin C 1000 MG Oral Tablet Take [...] mouth in the morning. 90 Tablet 3 No current facility-administered medications for this visit. Review of patient's allergies indicates: Allergen Reactions Amoxicillin Itching Bactrim [Sulfa Antibiotics] Rash age late 50's Review of Systems: A total number of 10 systems were reviewed pertinent negative and positives not addressed in HPI are listed in the following review. Physical Exam: Constitutional: BP 124/70 | Pulse 72 | Temp 36.3 C (97.4 F) (Tympanic) | Resp 16 | Wt 89.4 kg (197 lb 1.6 oz) | SpO2 99% | BMI 28.28 kg/m | BSA 2.1 m , appearance over nourished and healthy Ears, Nose, Mouth and Throat: mucous membranes moist, no injection and skin normal, eyes normal Cardiovascular: normal S-1 and S-2 and regular rate and rhythm Respiratory: clear to auscultation (CTA), no rales, ronchi or wheeze, and loud systolic murmer Musculoskeletal: no peripheral edema Skin: normal and intact Eyes: extraocular muscles intact (EOMI) NEUROLOGIC EXAMINATION: Mental status: Alert and interactive Oriented to person Speech fluent with no evidence of aphasia Cranial Nerves Normal findings for Cranial Nerves II - XII Reflexes: Lower extremity reflexes decreased Bilateral Sensory: Intact with vibration Coordination: Proprioception decreased in LLE>RLE she needs to monitor this due to driving Gait/Stance: Posture abnormal: increased thoracic kyphosis. Gait tandem sensory gait. Motor: Negative for pronator drift of out stretched arms with eyes closed. Strength: Normal - 5/5 all extremities LABORATORY: Recent labs reviewed Review of prior Studies: No recent imaging available. Impression: Anna A Brezler is a 73 year old woman with a history of parkinson's and neuropathy. Herneurologic examination today reveals no new focal deficit. The history and examination are suggestive of diagnosis/problem list. Testing and Referrals ordered: none ICD-10-CM 1. Parkinson's disease without dyskinesia or fluctuating manifestations G20.A1 2. Idiopathic peripheral neuropathy G60.9 3. Resting tremor G25.2 Return in 6 months or sooner if needed Ok to continue gabapentin 300 mg (1 tab) three x daily but should discuss drowsiness with PCP Gabapentin does no treat numbness but may be helping the pebble feeling under her feet Will hold on starting anything for her PD is not effecting ADL Keep active as possible watch driving with neuropathy as reaction time may be effected PCP for medical management Call with questions concerns. Medical Decision Making (determined by lowest of 2 of 3 elements): The medical decision making element of the number and complexity of problems addressed included at least 2 or more stable chronic illnesses (level 4). The medical decision making element of risk of complications, morbidity, and mortality of patient management is moderate (level 4) due to prescription drug management (moderate risk). The medical decision making element of the amount and complexity of data reviewed and analyzed included an independent interpretation of a test (level 4 at least). When 2 of 3 reach level 4, then this element is considered extensive (level 5). I personally spent a total of 30 minutes. This time was for a new office or established visit and was on the same calendar day. Education / Consultation - Topics covered as I spent 20 minutes, which is greater than 50% of this visit, counseling the patient on: Diagnostic Results Prognosis Importance of compliance with chosen treatment options Risk factor reductions Patient and family education Consulted with physician: Yves Back MD was available for direct supervision. Copy of note sent toPCP and Referring Provider. Total time of visit: 30 minutes. Rula King PA-C Neurology [facility] [place] [address] [facility] [place] [address] 04/24/2023 1:20 PM documented in this encounter Nursing Notes * Batool Diggs, MED ASSIST - 04/24/2023 1:16 PM EST Chief Complaint Patient presents with Return Neuro Parkinson's Disease documented in this encounter Plan of Treatment Upcoming Encounters Date Type Department Care Team (Late st Contact Info) Description 05/05/2023 8:45 AM EST Cardiac Studies Cardiac Studies, [place] [address] [place] [address] 09/20/2023 8:20 AM EDT Office Visit [facility], [place] [address] [place] [facility] [place] [phone] Luis Courtney MD [address] [place] [address] 10/20/2023 11:20 AM EDT Office Visit Urogynecology [facility] [address] [facility] [place] [address] Flower Griggs PA-C [address] [facility] [place] [address] 10/25/2023 10:00 AM EDT Office Visit Neurology [facility] [address] [facility] [place] [address] Rula King PA-C [address] [facility] [place] [address] Scheduled Procedures Name Priority Associated Diagnoses Date/Ti [...] Colorectal Cancer Screening 03/04/2024 HbA1c 03/17/2024 03/17/2023, 110 05/2021, 03/11/2021, Additional history exists Mammogram 04/18/2024 04/18/2023, 03/17, 02/17/2021, Additional history exists DTaP,Tdap,and Td Vaccines (3 - Td or Tdap) 03/16/2028 03/16/2018, 12/11/2007, 07/24/1995 Lipid Panel 03/17/2028 03/17/2023, 110 05/2021, 03/11/2021, Additional history exists Pneumococcal Vaccine: 65+ Years Completed 02/26/2015, 02/24/2014 VITAMIN D LEVEL ONCE IN A LIFETIME-USE SMARTSET# [id number] Completed 03/17/2023, 03/15/2022, 03/12/2020, Additional history exists [...] as of this encounter Visit Diagnoses Diagnosis Parkinson's disease without dyskinesia or fluctuating manifestations- Primary Idiopathic peripheral neuropathy Unspecified hereditary and idiopathic peripheral neuropathy Resting tremor Abnormal involuntary movements documented in this encounter Care Teams Surgical Physician Assistant Relationship Specialty Start Date End Date Luis Courtney MD [address] [place] [address] PCP - General 05/15/1997 documented as of this encounter"
--- OUTSIDE RECORDS SUMMARY | 2023-07-04 11:30 | External Medical Summary | Summary of Care ---
Author Name Unknown Organization [facility] Address [address] [place] [address] Phone [phone] Care Team Providers Care Leather Skinner Name Role Phone Luis Courtney MD Primary Care Provider [phone] Encounter Details Date Type Department Care Team (Late st Contact Info) Description 04/19/2023 Orders Only [facility] [address] [place] [address] Luis Courtney MD [address] [place] [address] Allergies Active Allergy Reactions Criticality Noted Date Comments Amoxicillin Itching 05/22/2013 Sulfa Antibiotics 02/18/2005 Rash age late 50's documented as of this encounter (statuses as of 04/19/2023) Medications Medication Sig Dispensed Refills Start Date [...] as of this encounter (statuses as of 04/19/2023) Active Problems Problem Noted Date Diagnosed Date [...] as of this encounter (statuses as of 04/19/2023) Resolved Problems Problem Noted Date Diagnosed Date [...] as of this encounter (statuses as of 04/19/2023) Immunizations Name Administration Dates Next Due COVID-19 mRNA, LNP-s, No Pre serve, 2-Dose Series ([employer]) 02/23/2021,07/24/2020,07/03/2020 Diptheria/Tetanus (Adult) 07/24/1995 Pneumococcal Conjugate Vacc, 13 Valent (Prevnar) 02/26/2015 [...] on file documented as of this encounter Miscellaneous Notes * Result Encounter Note - Dennise Salas RN - 04/19/2023 2:32 PM EST Reason for Call: Mammogram Contact: [facility] Contact Type: Test Results Outcome: MyChart letter sent Face to face time spent with Patient (minutes): 0 Total Time including non face to face (minutes): 10 * Result Encounter Note - Dennise Salas RN - 04/19/2023 2:32 PM EST Normal mammogram. MyChart letter sent documented in this encounter Plan of Treatment Upcoming Encounters Date Type Department Care Team (Late st Contact Info) Description 04/20/2023 1:35 PM EST Office Visit Urogynecology Marleny Aaron [address] [place] [address] Flower Griggs PA-C [address] [place] [address] Nurse Joyce Aaron [address] [place] [address] 04/24/2023 1:20 PM EST Office Visit Neurology [facility] [place] [address] [facility] [place] [address] Rula King PA-C [address] [facility] [place] [address] 05/05/2023 8:45 AM EST Cardiac Studies Cardiac Studies, [place] [address] [place] [address] 09/20/2023 8:20 AM EDT Office Visit Family Practice, [place] [address] [place] [phone] Luis Courtney MD [address] [place] [address] Scheduled Procedures Name Priority Associated Diagnoses Date/Ti [...] Colorectal Cancer Screening 03/04/2024 HbA1c 03/17/2024 03/17/2023, 1105/2021, 03/11/2021, Additional history exists Mammogram 04/18/2024 04/18/2023, 03/17, 02/17/2021, Additional history exists DTaP,Tdap,and Td Vaccines (3 - Td or Tdap) 03/16/2028 03/16/2018, 12/11/2007, 07/24/1995 Lipid Panel 03/17/2028 03/17/2023, 05/2021, 03/11/2021, Additional history exists Pneumococcal Vaccine: 65+ Years Completed 02/26/2015, 02/24/2014 VITAMIN D LEVEL ONCE IN A LIFETIME-USE SMARTSET# [id number] Completed 03/17/2023, 03/15/2022, 03/12/2020, Additional history exists [...] Not on filedocumented as of this encounter Procedures Procedure Name Priority Date/Time Associated Diagnosis Comments MAMMOGRAM SCREENING BILATERAL Routine 04/18/2023 documented in this encounter Results * MAMMOGRAM SCREENING BILATERAL (04/18/2023) Anatomical Region Laterality Modality Breast Bilateral Other 04/18/2023 Luis Courtney MD RAD MAMMOGRAPHY documented in this encounter Care Teams Leather Skinner Relationship Specialty Start Date End Date Luis Courtney MD [address] [place] [address] PCP - General 05/15/1997 documented as of this encounter
--- OUTSIDE RECORDS SUMMARY | 2023-07-04 11:31 | External Medical Summary | Summary of Care ---
Author Name Unknown Organization [facility] Address [address] [place] [address] Phone [phone] Care Team Providers Care Washateria Attendant Name Role Phone Luis Courtney MD Primary Care Provider [phone] Encounter Details Date Type Department Care Team (Late st Contact Info) Description 04/19/2023 Orders Only [facility] [address] [place] [address] Luis Courtney MD [address] [place] [address] Allergies Active Allergy Reactions Criticality [...] mRNA, LNP-s, No Pre serve, 2-Dose Series ([place]) 02/23/2021,07/24/2020,07/03/2020 Pneumococcal Conjugate Vacc, 13 Valent (Prevnar) [...] on file documented as of this encounter Plan of Treatment Upcoming Encounters Date Type Department Care Team (Late st Contact Info) Description 04/20/2023 1:35 PM EST Office Visit Urogynecology Marleny Aaron [address] [place] [address] Flower Griggs PA-C [address] [place] [address] Nurse Joyce Aaron [address] [place] [address] 04/24/2023 1:20 PM EST [facility] [address] [place] [address] Rula King PA-C [address] [facility] [place], [place] [address] 05/05/2023 8:45 AM EST Cardiac Studies [address] [address] 09/20/2023 8:20 AM EDT Office Visit [facility] [place] [address] [address] [facility] [phone] Luis Courtney MD [address] [place] [address] Scheduled Procedures Name Priority Associated Diagnoses Date/Ti [...] Colorectal Cancer Screening 03/04/2024 HbA1c 03/17/2024 03/17/2023, 11/0 05/2021, 03/11/2021, Additional history exists Mammogram 04/19/2024 04/18/2023, 113 , 02/17/2021, Additional history exists DTaP,Tdap,and Td Vaccines (3 - Td or Tdap) 03/16/2028 03/16/2018, 12/11/2007, 07/24/1995 Lipid Panel 03/17/2028 03/17/2023, 11/0 05/2021, 03/11/2021, Additional history exists Pneumococcal Vaccine: 65+ Years Completed 02/26/2015, 02/24/2014 VITAMIN D LEVEL ONCE IN A LIFETIME-USE SMARTSET# [id number] Completed 03/17/2023, 03/15/2022, 03/12/2020, Additional history exists [...] MAMMOGRAPHY documented in this encounter Care Teams Washateria Attendant Relationship Specialty Start Date End Date Luis Courtney MD [address] [place] [address] PCP - General 05/15/1997 documented as of this encounter
--- OUTSIDE RECORDS SUMMARY | 2023-07-04 11:31 | External Medical Summary | Summary of Care ---
Author Name Unknown Organization [facility] Address [address] [place] [address] Phone [phone] Care Team Providers Care Material Controller Name Role Phone Luis Courtney MD Primary Care Provider [phone] Encounter Details Date Type Department Care Team (Late st Contact Info) Description 04/19/2023 Orders Only [facility] [address] [place] [address] Luis Courtney MD [address] [place] [address] Allergies Active Allergy Reactions Criticality [...] mRNA, LNP-s, No Pre serve, 2-Dose Series ([employer]) 02/23/2021,07/24/2020,07/03/2020 Pneumococcal Conjugate Vacc, 13 Valent (Prevnar) [...] Marleny Aaron [address] [place] [address] Flower Griggs PA-C [address] [place] [address] Nurse Joyce Aaron [address] [place] [address] 04/24/2023 1:20 PM EST [facility] [address] [place] [place] [address] Rula King PA-C [address] [facility] [place], [place] [address] 05/05/2023 8:45 AM EST Cardiac Studies [address], [address] [address] 09/20/2023 8:20 AM EDT [facility] [place] [address] [address] [facility] [phone] Luis Courtney MD [address] [place] [address] Scheduled Procedures Name Priority Associated Diagnoses Date/Ti [...] 11/0 05/2021, 03/11/2021, Additional history exists Mammogram 04/18/2024 04/18/2023, 113 , 02/17/2021, Additional history exists DTaP,Tdap,and Td Vaccines (3 - Td or Tdap) 03/16/2028 03/16/2018, 12/11/2007, 07/24/1995 Lipid Panel 03/17/2028 03/17/2023, 11/0 05/2021, 03/11/2021, Additional history exists Pneumococcal Vaccine: 65+ Years Completed 02/26/2015, 02/24/2014 VITAMIN D LEVEL ONCE IN A LIFETIME-USE SMARTSET# [id number] Completed 03/17/2023, 03/15/2022, 03/12/2020, Additional history exists [...] MAMMOGRAPHY documented in this encounter Care Teams Material Controller Relationship Specialty Start Date End Date Luis Courtney MD [address] [place] [address] PCP - General 05/15/1997 documented as of this encounter
--- NOTE | 2023-07-04 12:24 | History & Physical Report ---
Date of Service July 04, 2023 Assessment & Plan (1) Substernal chest pain: Plan: Substernal chest pain since last night while watching TV Pain goes to the back and has nausea without any other associated symptoms Worse with breathing and sometimes changing position Could be secondary to pleurisy/pericarditis EKG showed T inversion in lead III questionable IN depression in 1 and 2 and initial cardiac enzymes negative CTA-did not show any aortic dissection, 6 mm indeterminate pulmonary nodule within the lingula and follow-up was recommended. No other significant finding Will admit to telemetry unit and monitor for evidence of ACS Echocardiogram to rule out any pericardial effusion or pericarditis Cardiology evaluation Has resting tremors of the hands bilaterally Has been under care of neurologist Not yet diagnosed with Parkinson disease Ambulation is okay and she sometimes tends to fall but not in any particular direction (2) Aortic stenosis: Plan: Last echo was 05/05/2023 showed: Normal LV cavity size, LV wall thickness is moderately increased, wall motion is normal, EF was 60 to 64%, aortic valve is moderately calcified with moderate aortic valve stenosis, mild aortic valve regurgitation and mild mitral annular calcification. The aortic root and proximal ascending aorta are normal sized compared with prior study aortic valve velocities have increased slightly but aortic stenosis remains moderate The chest pain could be secondary to aortic stenosis Will get cardiology evaluation and echo to evaluate valve status (3) Mnire's disease: Plan: No acute symptoms (4) GERD (gastroesophageal reflux disease): Plan: Continue PPI (5) Overactive bladder: Plan: Continue current medications (6) Peripheral neuropathy: Plan: Has been on gabapentin (7) Hyperlipidemia: Plan: Not taking any statins Plan DVT prophylaxis Subcu heparin CODE STATUS Full Discussed with the daughter History of Present Illness Chief Complaint: Substernal chest pain since last night Primary Care Provider: Luis Courtney MD She is a 73-year-old female with significant past medical history of aortic stenosis, spastic and overactive bladder, peripheral neuropathy, hyperlipidemia, osteoporosis, GERD and Mnire's disease apparently has been complaining of substernal chest pains since last night. The pain started while she was watching TV and the pain was 10 out of 10 on a scale of 0-10. Pain is worse with changing position and is associated with nausea but no vomiting. Pain also is worse with deep breathing in and out. The pain is substernal and that was going to the back, denies any radiation of pain, any palpitation, any shortness of breath or any sweating. No cough and no fever and no chills. No bowel problems but she has overactive bladder. Allergies Allergy/AdvReac Type Severity Reaction Status Date / Time Sulfa (Sulfonamide Allergy Intermediate Rash Verified 03/16/21 00:27 Antibiotics) Home Medications Medication Instructions Recorded Confirmed Type aspirin 81 mg tablet,delayed 81 mg PO DAILY 03/16/21 07/04/23 History release calcium carbonate 600 mg-vitamin 1 tab PO DAILY 03/16/21 07/04/23 History D3 10 mcg (400 unit) tablet (Calcium 600 + D(3)) cholecalciferol (vitamin D3) 25 25 mcg PO DAILY 03/16/21 07/04/23 History mcg (1,000 unit) capsule (Vitamin D3) hydrochlorothiazide 25 mg tablet 25 mg PO DAILY 03/16/21 07/04/23 History multivitamin 1 tab PO DAILY 03/16/21 07/04/23 History omeprazole 20 mg capsule,delayed 20 mg PO DAILYBB 03/16/21 07/04/23 History release gabapentin 300 mg capsule 300 mg PO TID 07/04/23 07/04/23 History mirabegron 50 mg tablet,extended 50 mg PO QAM 07/04/23 07/04/23 History release 24 hr (Myrbetriq) Past Med/Surg History Medical History Mnire's disease GERD (gastroesophageal reflux disease) Overactive bladder Social History Smoking Status: Never smoker Preferred Language: Thai Feels Safe at Home: Yes Review of Systems Review of Systems: All systems reviewed and are unremarkable except as noted below Cardiovascular: Additional Comments: Substernal chest pain that goes to the back. Physical Exam Physical Exam: Lying in bed without any acute distress Constitutional: + ill appearing and average body habitus Eyes: PERRL, conjunctivae normal, anicteric sclerae ENMT: external ear and nose normal, oropharynx normal Neck: trachea midline, no thyromegaly Respiratory: no respiratory distress Auscultation: lungs clear to auscultation bilaterally Cardiovascular: Rate/Rhythm: regular rate and regular rhythm; not tachycardic Heart Sounds: normal S1, normal S2 and + murmur (3/60 ESM over precordium and aortic area) Extremities: + edema (Trace to 1+ edema bilaterally) Gastrointestinal (Abdomen): Inspection/Auscultation: normal bowel sounds; abdomen not distended Percussion/Palpation: abdomen soft; abdomen nontender Musculoskeletal: No acute arthritis involving any of the joint Neurologic: normal touch/pain/proprioception and moves all extremities; no focal motor deficits Has resting tremors involving the upper extremities mainly which is at times. Lymphatic: no cervical or axillary lymphadenopathy Results & Data Results & Data Vital Signs (Past 12 Hours) Vital Signs Temp Pulse Pulse Resp BP BP Pulse Ox 07/04/23 10:30 72 16 98 07/04/23 10:18 73 21 98 07/04/23 10:18 143/64 H 07/04/23 10:05 143/64 H 100 07/04/23 10:03 157/71 H 07/04/23 09:46 78 19 98 07/04/23 09:30 82 17 98 07/04/23 09:00 82 19 99 07/04/23 09:00 150/78 H 07/04/23 08:45 78 07/04/23 08:35 89 17 90 07/04/23 08:00 79 20 172/72 H 95 07/04/23 07:40 95 07/04/23 07:33 80 20 95 07/04/23 07:25 36.8 C 95 H 18 162/131 H 100 O2 Del Method 07/04/23 10:30 07/04/23 10:18 07/04/23 10:18 07/04/23 10:05 07/04/23 10:03 07/04/23 09:46 07/04/23 09:30 07/04/23 09:00 07/04/23 09:00 07/04/23 08:45 07/04/23 08:35 07/04/23 08:00 Room Air 07/04/23 07:40 Room Air 07/04/23 07:33 Room Air 07/04/23 07:25 Laboratory Results Short CBC 07/04/23 Range/Units 07:45 WBC 10.11 (4.8-10.8) K/ul Hgb 11.8 L (12.0-16.0) g/dl Hct 37.1 (37.0-47.0) % Plt Count 222 (130-400) K/uL BMP 07/04/23 07:45 Sodium 139 Potassium 3.8 Chloride 102 Carbon Dioxide 32 BUN 15 Creatinine 0.75 Glucose 129 H Calcium 10.1 Liver Function 07/04/23 Range/Units 07:45 Total Bilirubin 0.6 (0.2-1.0) mg/dl AST 16 (13-39) U/L ALT 15 (7-52) U/L Alkaline Phosphatase 73 (34-104) U/L Albumin 4.6 (3.4-5.0) gm/dl Diagnostic Findings Laboratory Results WBC 10.11 K/ul (4.8-10.8) 07/04/23 07:45 RBC 4.54 M/uL (4.20-5.40) 07/04/23 07:45 Hgb 11.8 g/dl (12.0-16.0) L 07/04/23 07:45 Hct 37.1 % (37.0-47.0) 07/04/23 07:45 MCV 81.7 fL (80.0-100.0) 07/04/23 07:45 MCH 26.0 pg (25.0-34.0) 07/04/23 07:45 MCHC 31.8 g/dL (32.0-36.0) L 07/04/23 07:45 RDW Std Deviation 38.2 fL (36.4-46.3) 07/04/23 07:45 RDW Coeff of Emily 12.9 % (11.5-14.5) 07/04/23 07:45 Plt Count 222 K/uL (130-400) 07/04/23 07:45 MPV 10.8 fL (9.4-12.4) 07/04/23 07:45 Immature Gran % (Auto) 0.3 % 07/04/23 07:45 Neut % (Auto) 80.5 % 07/04/23 07:45 Lymph % (Auto) 11.4 % 07/04/23 07:45 [place] % (Auto) 7.2 % 07/04/23 07:45 Eos % (Auto) 0.4 % 07/04/23 07:45 Baso % (Auto) 0.2 % 07/04/23 07:45 Neut # (Auto) 8.14 K/uL (1.40-6.50) H 07/04/23 07:45 Lymph # (Auto) 1.15 K/uL (1.20-3.40) L 07/04/23 07:45 [place] # (Auto) 0.73 K/uL (0.11-0.59) H 07/04/23 07:45 Eos # (Auto) 0.04 K/uL (0.00-0.50) 07/04/23 07:45 Baso # (Auto) 0.02 K/uL (0.00-0.20) 07/04/23 07:45 Immature Gran # (Auto) 0.03 K/uL (0.01-0.20) 07/04/23 07:45 PT 10.9 Seconds (9.0-12.0) 07/04/23 07:45 INR 1.0 (0.9-1.1) 07/04/23 07:45 APTT 27 Seconds (21-31) 07/04/23 07:45 PTT Ratio 1.0 07/04/23 07:45 Sodium 139 mmol/L (136-145) 07/04/23 07:45 Potassium 3.8 mmol/L (3.5-5.1) 07/04/23 07:45 Chloride 102 mmol/L (98-107) 07/04/23 07:45 Carbon Dioxide 32 mmol/L (21-32) 07/04/23 07:45 Anion Gap 5 (3-11) 07/04/23 07:45 BUN 15 mg/dl (6-23) 07/04/23 07:45 Creatinine 0.75 mg/dl (0.6-1.2) 07/04/23 07:45 Est Cr Clr Drug Dosing 71.2 ml/min 07/04/23 07:45 Est GFR ( Amer) 91.0 ml/min 07/04/23 07:45 Est GFR (Non-Af Amer) 78.5 ml/min 07/04/23 07:45 BUN/Creatinine Ratio 20.0 (10-20) 07/04/23 07:45 Glucose 129 mg/dl (70-99(Fasting)) H 07/04/23 07:45 Calcium 10.1 mg/dl (8.6-10.3) 07/04/23 07:45 Total Bilirubin 0.6 mg/dl (0.2-1.0) 07/04/23 07:45 AST 16 U/L (13-39) 07/04/23 07:45 ALT 15 U/L (7-52) 07/04/23 07:45 Alkaline Phosphatase 73 U/L (34-104) 07/04/23 07:45 Troponin I High Sens 6.3 pg/ml (0-14) 07/04/23 09:44 Total Protein 7.8 gm/dl (6.0-8.3) 07/04/23 07:45 Albumin 4.6 gm/dl (3.4-5.0) 07/04/23 07:45 Globulin 3.2 gm/dl (2.5-4.0) 07/04/23 07:45 Albumin/Globulin Ratio 1.4 (0.9-2) 07/04/23 07:45 Lipase 11 U/L (11-82) 07/04/23 07:45 Impressions Chest X-Ray 07/04/23 07:33 XR chest 1V portable HISTORY: Chest pain, nonspecific COMPARISON: None. FINDINGS: The lungs are clear. Cardiac silhouette is normal in size. No pleural effusions. No pneumothorax. IMPRESSION: No acute process. ACT 112: Negative or not required by law. Electronically signed by: Abelardo Moeller M.D. 07/04/2023 9:29 AM Chest CTA 07/04/23 09:22 CHEST CTA for AORTIC DISSECTION CT DOSE: 1468. mGy.cm HISTORY: Chest and back pain. Assess for an aortic dissection. TECHNIQUE: Multiaxial CT images of the chest were performed both before and after the intravenous administration of contrast to evaluate the aorta. 3D/MIP images were also obtained. Sagittal and coronal reformations were also reviewed. A dose lowering technique was utilized adhering to the principles of ALARA. COMPARISON STUDY: None. FINDINGS: Noncontrast imaging through the chest shows no evidence for an intramural hematoma within the thoracic aorta. There is a normal caliber thoracic aorta with no evidence for a dissection. Mild calcified plaque within the thoracic aorta. The central pulmonary arteries are patent. No acute fractures within the chest. No pneumothorax. The central airways are patent. Mild dependent changes seen at the lung bases. A 3 mm subpleural nodule on the left major fissure best seen on image 90. A 6 mm nodule within the base of the lingula on image 131. This is partially obscured by the motion artifact. No focal lung consolidations to suggest a pneumonia. No evidence for pulmonary edema. Punctate calcified granuloma within the right lung apex. Normal thyroid gland. Limited views of the upper abdomen demonstrate a normal liver and adrenal glands. Punctate calcified granulomas seen within the spleen. Normal esophagus. The heart is normal in size. No pleural or pericardial effusions. No mediastinal or hilar lymphadenopathy. IMPRESSION: 1. No evidence for an aortic dissection. 2. No focal lung consolidations to suggest a pneumonia. 3. A 6 mm indeterminate pulmonary nodule within the lingula. Please refer to the chart below for recommended follow-up. 4. Additional findings as described above. Please refer to below summary of Fleischner criteria recommendations for follow- up of incidental CT nodules (Jai Nguyen, Guidelines for management of small pulmonary nodules detected on CT scans: A statement from the Fleischner Society, Radiology 237: [phone].) SOLID NODULES Solitary nodule size: <6 mm * Low risk patients: no follow-up needed * high risk patients: optional CT at 12 months Solitary nodule size: 6-8 mm * Low risk patients: follow-up at 6-12 months, then consider further follow-up at 18-24 months * high risk patients: initial follow-up CT at 6-12 months and then at 18-24 months if no change Solitary nodule size: >8 mm * either low or high risk patients - consider follow-up CT at 3 months, and/or CT-PET, and/or biopsy Multiple nodules size: <6 mm * Low risk patients: no routine follow-up * high risk patients: optional CT at 12 months Multiple nodules size: 6-8 mm * Low risk patients: follow-up at 3-6 months, then consider further follow-up at 18-24 months * high risk patients: follow-up at 3-6 months, then at 18-24 months if no change Multiple nodules size: >8 mm * Low risk patients: follow-up at 3-6 months, then consider further follow-up at 18-24 months * high risk patients: follow-up at 3-6 months, then at 18-24 months if no change Note: newly detected indeterminate nodule in persons 35 years of age or older. * Low risk patients: minimal or absent history of smoking and/or other known risk factors * high risk patients: history of smoking or of other known risk factors (e.g. first degree relative with lung cancer, or exposure to asbestos, radon, uranium) * if a nodule up to 8 mm is partly solid or is ground glass further follow-up is required after 24 months to exclude possible slow growing adenocarcinoma (KIRK) SUBSOLID NODULES Solitary pure ground-glass nodule * nodule size <6 mm - no CT follow-up required * nodule size >=6 mm - follow-up CT at 6-12 months, then every 2 years until 5 years Solitary part-solid nodule * nodule size <6 mm - no CT follow-up required * nodule size >=6 mm - follow-up CT at 3-6 months. If unchanged, and solid component remains <6 mm, then annual follow-up for 5 years Multiple subsolid nodules * nodule size <6 mm - follow-up CT at 3-6 months, consider further follow-up at 2 and 4 years if stable * nodule size >=6 mm - follow-up CT at 3-6 months, subsequent management based on the most suspicious nodule(s) ACT 112: Positive. There are findings on this exam that require communication between the performing entity and the patient following Patient Test Result Information Act ([place] Act 112) guidelines. Electronically signed by: Abelardo Moeller M.D. 07/04/2023 10:53 AM
[2023-07-04] MEDS: ACETAMINOPHEN 1,000 MG/100 ML VIAL IV STA (12:25)
[2023-07-04] MEDS: NITROGLYCERIN SL 0.4 MG/TAB TAB SL STA (12:25)
[2023-07-04] MEDS: KETOROLAC TROMETHAMINE 15 MG/ML VIAL IV ONE (12:46)
--- NOTE | 2023-07-04 15:08 | Cardiology Consultation ---
Date of Consultation July 04, 2023 Assessment & Plan (1) Chest pain: (2) Aortic stenosis: Plan IMPRESSION: 73-year-old female presents to [facility] emergency department due to chest discomfort that has some qualities that question a pleuritic cause, however, ischemic cause has yet to be ruled out. Patient has a known history of aortic stenosis, classified as moderate on last echo dated 04/2023. Murmur auscultated on exam was harsh with a diminished S2. Echocardiogram this admission pending. High-sensitivity troponins negative x 2. EKG without acute ST segment changes. PLAN: Chest pain--etiology in question. 1. Resting echo ordered to reassess valvular status and LV systolic function. Will rule out any new wall motion abnormality. 2. Add on a CRP and sed rate to check for inflammation with questionable pleuritic cause to her symptoms. 3. Future considerations of a stress test pending clinical course. 4. Patient with known GERD, treat with PPI. 5. ? Msk cause as pain was eased by Toradol and Tylenol. Case to be discussed with Dr. Ramos. Further recommendations pending his assessment I spent a total of 40 minutes on the date of service in preparation, delivery, and documentation of the care provided to the patient excluding any time spent in the performance of separately billed services. JULIA Douglas Department of Cardiology, [facility] This chart was completed in part utilizing Speech Voice Recognition Software. Grammatical errors, random word insertions, pronoun errors, and incomplete sentences are an occasional consequence of this system due to software limitations, ambient noise, and hardware issues. Any formal questions or concerns about the content, text, or information contained within the body of this dictation should be directly addressed to the provider for clarification. Supervising Physician Co-Signing Physician Notes Attending attestation: Case reviewed with the advanced practitioner. I have personally performed a history and physical examination on the patient. I have reviewed the advanced practitioner's documentation on the date of service referenced in note, and I agree with, and take responsibility for the plan of care. Subjective: Patient seen in the emergency room, bay A12[facility]. Daughter accompanied her at the time of exam. Patient describes chest and back pain reproducible with deep inspiration. It has been present since yesterday and has waxed and waned, for the most part resolved after receiving morphine and Toradol in the emergency department. Exam: Cardiovascular: 06/20 systolic murmur heard best at right sternal border, trace edema Data: EKG performed 07/04/2023 and interpret independently: Sinus rhythm at 72 bpm with incomplete right bundle branch block, T wave inversion limited to lead III, compared to historical EKGs, no significant clinical interval change High-sensitivity troponin negative x 3 thus far C-reactive protein mildly elevated at 2.4 mg/dL, erythrocyte sedimentation rate mildly elevated at 40 mm/h Echocardiogram performed today revealed mild concentric left ventricular pressure feet, no regional wall motion abnormalities, normal LVEF, 60-65%, moderate aortic valve stenosis, grade 1 diastolic dysfunction, no pericardial effusion, unchanged compared to report of echocardiogram performed as an outpatient in April, CT angiogram negative for thoracic aortic dissection 6 mm indeterminate pulmonary nodule within the lingula Impression/ Plan: Pleuritic chest pain, perhaps pleurisy -I think it is reasonable to keep the patient in the hospital for observation and ongoing monitoring with serial troponin levels, but clinical presentation thus far and data collected suggests nonanginal etiology of discomfort -Patient received Toradol x 1. Had received iodinated contrast today hold off on further NSAIDs, and consider ibuprofen 07/05/2023 CT angiogram of the chest revealed mild atherosclerotic calcification of the thoracic aorta especially at the aortic arch per my personal review of the images, and mild calcification of the coronary arteries -Proceed with lipid panel -Will likely add statin therapy Moderate aortic stenosis -Unchanged compared to April, I spent a total of 25 minutes coordinating, documenting, and providing care for this patient excluding time spent in the performance of separately billed services or time spent by another provider. Chuck Ramos DO History of Present Illness Reason for Consultation: Chest pain Requesting Physician: Marc michelle History of Present Illness 73-year-old female presented to [facility] emergency department today due to ongoing chest discomfort that started approximately 9:30 last evening. Pain is described as a dull aching sensation that radiated to her back. She was very busy yesterday going to [employer] and cooking/cleaning, felt while doing these activities however in the evening she thought maybe she overdid it. When she went to rest in bed she could not get comfortable and despite laying in different ways the pain persisted. She ended up falling asleep in the recliner. Denies any shortness of breath however if she does take a deep breath then pain is worse. Denies any recent sick contacts. No recent illnesses. Denies palpitations. No lightheadedness or dizziness. Upon entrance into the room patient resting comfortably in bed. Notes mild improvement in her chest discomfort since receiving Toradol and GI cocktail. She does carry history of GERD but notes that her symptoms today are different than her normal reflux like symptoms. Also has a history of aortic stenosis, most recent outpatient echo dated 05/05/2023 showed a preserved LV systolic function of 60 to 64% with moderate aortic stenosis. Velocities of 325 cm/sec and a valve area of 1.1 cm. Echo this admission pending. EKGs appear similar to outpatient. High-sensitivity troponins negative x 2. Primary outpatient rn er: Dr. Marino Past medical history: Aortic stenosis, classified as moderate per echo 04/2023 Remote coronary angiography, 2004 after false positive stress testing with normal anatomy Mild hypertension GERD Allergies Allergy/AdvReac Type Severity Reaction Status Date / Time Sulfa (Sulfonamide Allergy Intermediate Rash Verified 03/16/21 00:27 Antibiotics) Home Medications Medication Instructions Recorded Confirmed Type aspirin 81 mg tablet,delayed 81 mg PO DAILY 03/16/21 07/04/23 History release calcium carbonate 600 mg-vitamin 1 tab PO DAILY 03/16/21 07/04/23 History D3 10 mcg (400 unit) tablet (Calcium 600 + D(3)) cholecalciferol (vitamin D3) 25 25 mcg PO DAILY 03/16/21 07/04/23 History mcg (1,000 unit) capsule (Vitamin D3) hydrochlorothiazide 25 mg tablet 25 mg PO DAILY 03/16/21 07/04/23 History multivitamin 1 tab PO DAILY 03/16/21 07/04/23 History omeprazole 20 mg capsule,delayed 20 mg PO DAILYBB 03/16/21 07/04/23 History release gabapentin 300 mg capsule 300 mg PO TID 07/04/23 07/04/23 History mirabegron 50 mg tablet,extended 50 mg PO QAM 07/04/23 07/04/23 History release 24 hr (Myrbetriq) Patient History Medical History Mnire's disease GERD (gastroesophageal reflux disease) Overactive bladder Social History Smoking Status: Never smoker Preferred Language: Yoruba Feels Safe at Home: Yes Review of Systems Review of Systems: All systems reviewed & are unremarkable except as noted in HPI & below Physical Exam Constitutional: WD/WN, vitals as above no acute distress Neck: normal visual inspection and trachea midline Respiratory: normal respiratory effort; no respiratory distress and no cough Auscultation: + rales (Bilateral bases); no rhonchi and no wheezes Cardiovascular: Rate/Rhythm: regular rate and regular rhythm Heart Sounds: normal S1, normal S2 and + murmur (+3/6 systolic murmur, harsh) Vessels: no JVD Extremities: + edema (trace BL pitting edema ) Gastrointestinal (Abdomen): normal bowel sounds, soft, nontender, no hepatosplenomegaly Skin: no rashes, warm and dry Neurologic: PERRL, EOMI, accommodation nl, no face palsy, no dysarthria Psychiatric: Orientation: alert and oriented x 3 Results & Data Vital Signs (Past 12 Hours) Vital Signs Temp Pulse Pulse Resp BP BP Pulse Ox 07/04/23 14:00 87 18 140/83 97 07/04/23 12:50 79 18 150/68 H 94 07/04/23 12:48 84 07/04/23 12:20 81 17 151/69 H 96 07/04/23 10:30 72 16 98 07/04/23 10:18 73 21 98 07/04/23 10:18 143/64 H 07/04/23 10:05 143/64 H 100 07/04/23 10:03 157/71 H 07/04/23 09:46 78 19 98 07/04/23 09:30 82 17 98 07/04/23 09:00 82 19 99 07/04/23 09:00 150/78 H 07/04/23 08:45 78 07/04/23 08:35 89 17 90 07/04/23 08:00 79 20 172/72 H 95 07/04/23 07:40 95 07/04/23 07:33 80 20 95 07/04/23 07:25 36.8 C 95 H 18 162/131 H 100 O2 Del Method 07/04/23 14:00 Room Air 07/04/23 12:50 Room Air 07/04/23 12:48 07/04/23 12:20 07/04/23 10:30 07/04/23 10:18 07/04/23 10:18 07/04/23 10:05 07/04/23 10:03 07/04/23 09:46 07/04/23 09:30 07/04/23 09:00 07/04/23 09:00 07/04/23 08:45 07/04/23 08:35 07/04/23 08:00 Room Air 07/04/23 07:40 Room Air 07/04/23 07:33 Room Air 07/04/23 07:25 Laboratory Results Cardiac Enzymes 07/04/23 07/04/23 Range/Units 07:45 09:44 AST 16 (13-39) U/L Troponin I High Sens 5.6 6.3 (0-14) pg/ml Coagulation 07/04/23 Range/Units 07:45 PT 10.9 (9.0-12.0) Seconds APTT 27 (21-31) Seconds CBC 07/04/23 Range/Units 07:45 WBC 10.11 (4.8-10.8) K/ul RBC 4.54 (4.20-5.40) M/uL Hgb 11.8 L (12.0-16.0) g/dl Hct 37.1 (37.0-47.0) % Plt Count 222 (130-400) K/uL Neut # (Auto) 8.14 H (1.40-6.50) K/uL Lymph # (Auto) 1.15 L (1.20-3.40) K/uL [place] # (Auto) 0.73 H (0.11-0.59) K/uL Eos # (Auto) 0.04 (0.00-0.50) K/uL Baso # (Auto) 0.02 (0.00-0.20) K/uL Comprehensive Metabolic Panel 07/04/23 Range/Units 07:45 Sodium 139 (136-145) mmol/L Potassium 3.8 (3.5-5.1) mmol/L Chloride 102 (98-107) mmol/L Carbon Dioxide 32 (21-32) mmol/L BUN 15 (6-23) mg/dl Creatinine 0.75 (0.6-1.2) mg/dl Glucose 129 H (70-99(Fasting)) mg/dl Calcium 10.1 (8.6-10.3) mg/dl AST 16 (13-39) U/L ALT 15 (7-52) U/L Alkaline Phosphatase 73 (34-104) U/L Total Protein 7.8 (6.0-8.3) gm/dl Albumin 4.6 (3.4-5.0) gm/dl Intake and Output 07/04/23 07/04/23 07/04/23 06:59 14:59 22:59 Intake Total 600 / 600 Balance 600 / 600 Intake: IV 600 / 600 Acetaminophen 1,000 mg In 100 100 / 100 ml @ 400 mls/hr IV NOW STA Rx#: [id number] Sodium Chloride 0.9% 500 ml @ 500 / 500 999 mls/hr IV .Q31M ONE Rx#: [id number] Other: Weight 80.6 kg Patient Weight 07/05/23 06:59 Weight 80.6 kg (1) Chest pain Chest pain type: unspecified Qualified Code(s): R07.9 - Chest pain, unspecified (2) Aortic stenosis Cardiac valve disease etiology: nonrheumatic Qualified Code(s): I35.0 - Nonrheumatic aortic (valve) stenosis
[2023-07-04 15:59] LABS: C Reactive Protein 2.4 mg/dl (0-0.5)
[2023-07-04] MEDS: GABAPENTIN 300 MG CAP PO SCH (16:06)
[2023-07-04] MEDS ORDERED: ACETAMINOPHEN 325 MG TAB PO PRN (21:12)
[2023-07-04] MEDS: HEPARIN SOD 5,000 UNIT/0.5 ML VIAL SQ SCH (21:13)
[2023-07-04] MEDS: traMADol HCL 50 MG TABLET PO PRN (21:21)
[2023-07-05 07:00] LABS: Basophils # (auto) 0.02 K/uL (0.00-0.20); Basophils % (auto) 0.3 %; Eosinophils # (auto) 0.02 K/uL (0.00-0.50); Eosinophils % (auto) 0.3 %; Hematocrit (blood only) 31.8 % (37.0-47.0); Hemoglobin 10.3 g/dl (12.0-16.0); Immature Granulocytes # (auto) 0.02 K/uL (0.01-0.20); Immature Granulocytes % (auto) 0.3 %; Lymphocytes # (auto) 1.26 K/uL (1.20-3.40); Lymphocytes % (auto) 18.2 %; Mean Corpuscular Hemoglobin 26.6 pg (25.0-34.0); Mean Corpuscular Hgb Conc 32.4 g/dL (32.0-36.0); Mean Corpuscular Volume 82.2 fL (80.0-100.0); Monocytes # (auto) 0.84 K/uL (0.11-0.59); Monocytes % (auto) 12.1 %; Neutrophils # (auto) 4.78 K/uL (1.40-6.50); Neutrophils % (auto) 68.8 %; Platelet Count 171 K/uL (130-400); RDW Coefficient of Variation 13.1 % (11.5-14.5); RDW Standard Deviation 39.1 fL (36.4-46.3); Red Blood Count 3.87 M/uL (4.20-5.40); White Blood Count 6.94 K/ul (4.8-10.8)
[2023-07-05 07:22] LABS: BUN Creatinine Ratio 25.6 (10-20); Chol HDL Ratio 2.1 (0-5); Creatinine Clr Calc Pharmacy 59.3 ml/min; Magnesium 1.8 mg/dl (1.7-2.4); Potassium 3.8 mmol/L (3.5-5.1)
--- NOTE | 2023-07-05 07:23 | Cardiology Progress Note ---
Date of Service July 05, 2023 Assessment & Plan (1) Aortic stenosis: (2) Pleuritic chest pain: (3) Aortic atherosclerosis: Plan IMPRESSION: 73-year-old female presents to [facility] emergency department due to chest discomfort that radiated into her back that resolved after receiving morphine and Toradol in the ED. Cardiac workup has been unremarkable this admission. EKG without acute changes suggestive of ischemia. HS troponin negative x4. Patient has known stable moderate on echo this admission. EF preserved without new WMA. PLAN: Pleuritic chest pain: CRP and ESR were mildly elevated. Pain resolved with morphine and Toradol. Very atypical for angina. Pain questionably due to pleurisy. 1. Will give 200 mg Ibuprofen TID x7 days 2. If pain returns/changes in characteristics consider outpatient nuclear stress testing. Mild atherosclerotic calcification of the thoracic aorta per CT angiogram: 1. Continue ASA 81 mg daily daily 2. Add Crestor 5 mg daily Moderate aortic stenosis: -Unchanged compared to April,-- Continue to monitor as an outpatient. Case to be discussed with Dr. Ramos. I spent a total of 30 minutes on the date of service in preparation, delivery, and documentation of the care provided to the patient excluding any time spent in the performance of separately billed services. JULIA Douglas Department of Cardiology, [facility] This chart was completed in part utilizing Speech Voice Recognition Software. Grammatical errors, random word insertions, pronoun errors, and incomplete sentences are an occasional consequence of this system due to software limitations, ambient noise, and hardware issues. Any formal questions or concerns about the content, text, or information contained within the body of this dictation should be directly addressed to the provider for clarification. Admission and Anticipated Discharge Date Admission Date: July 04, 2023 Supervising Physician Co-Signing Physician Notes Attending attestation: Case reviewed with the advanced practitioner. I have personally performed a history and physical examination on the patient. I have reviewed the advanced practitioner's documentation on the date of service referenced in note, and I agree with, and take responsibility for the plan of care. Subjective: Pain improved Exam: Cardiovascular: Regular rhythm, 2/6 systolic murmur, no edema Musculoskeletal: Noted kyphosis Data: EKG performed 07/05/2023, 5:32 AM and interpret independently: Normal sinus rhythm 84 bpm, mild nonspecific T wave abnormality, compared to previous, incomplete right bundle branch block longer present, criteria for septal infarct normal present, overall stable findings Impression/ Plan: -Problem list as noted above -Trial of ibuprofen 20 mg 3 times daily x 7 days for pleuritic, not anginal chest discomfort -Proceed with rosuvastatin, 5 mg daily, given atherosclerosis aorta, coronary calcification, despite excellent LDL level -Outpatient follow-up recommended for 6 mm solitary pulmonary nodule, patient non-smoker, did have secondhand smoke exposure from who was a smoker -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 I spent a total of 20 minutes coordinating, documenting, and providing care for this patient excluding time spent in the performance of separately billed services or time spent by another provider. Chuck Ramos, Subjective 73-year-old female presents to [facility] emergency department due to chest discomfort that radiated into her back that resolved after receiving morphine and Toradol in the ED. EKG performed 07/04/2023: Sinus rhythm at 72 bpm with incomplete right bundle branch block, T wave inversion limited to lead III, compared to historical EKGs, no significant clinical interval change High-sensitivity troponin negative x 4 C-reactive protein mildly elevated at 2.4 mg/dL, erythrocyte sedimentation rate mildly elevated at 40 mm/h Echocardiogram performed 07/04/2023 revealed mild concentric left ventricular pressure feet, no regional wall motion abnormalities, normal LVEF, 60-65%, moderate aortic valve stenosis, grade 1 diastolic dysfunction, no pericardial effusion, unchanged compared to report of echocardiogram performed as an outpatient in April, CT angiogram negative for thoracic aortic dissection, 6 mm indeterminate pulmonary nodule within the lingula. Upon entrance into the room patient resting in bed. Son at bedside. Notes improvement overall in her symptoms. Having some reflux and gas discomfort this morning. Per the patient she missed x2 doses of her omeprazole. No chest pain or shortness of breath. No palpitations or lightheadedness. Review of Systems Review of Systems: All systems reviewed & are unremarkable except as noted in HPI & below Physical Exam Constitutional: WD/WN, vitals as above no acute distress Neck: normal visual inspection and trachea midline Respiratory: normal respiratory effort; no respiratory distress and no cough Auscultation: + rales (Bilateral bases); no rhonchi and no wheezes Cardiovascular: Rate/Rhythm: regular rate and regular rhythm Heart Sounds: normal S1, normal S2 and + murmur (+3/6 systolic murmur, harsh) Vessels: no JVD Extremities: + edema (trace BL pitting edema ) Gastrointestinal (Abdomen): normal bowel sounds, soft, nontender, no hepatosplenomegaly Skin: no rashes, warm and dry Neurologic: PERRL, EOMI, accommodation nl, no face palsy, no dysarthria Psychiatric: Orientation: alert and oriented x 3 Results & Data Vital Signs (Past 12 Hours) Vital Signs Temp Pulse Pulse Resp BP Pulse Ox O2 Del Method 07/05/23 02:51 37.0 C 81 16 111/65 92 Room Air 07/04/23 23:16 37.6 C H 86 20 122/71 94 Room Air 07/04/23 22:02 36.8 C 87 18 119/65 98 Room Air 07/04/23 21:56 82 07/04/23 21:04 101 H 07/04/23 20:41 88 19 122/59 L 95 Room Air Laboratory Results Cardiac Enzymes 07/04/23 07/04/23 07/04/23 Range/Units 09:44 16:03 21:18 Troponin I High Sens 6.3 8.2 7.4 (0-14) pg/ml Lipids 07/05/23 Range/Units 06:24 Triglycerides 69 (0-150) mg/dl Cholesterol 138 (0-200) mg/dl HDL Cholesterol 65 mg/dl Cholesterol/HDL Ratio 2.1 (0-5) CBC 07/05/23 Range/Units 06:24 WBC 6.94 (4.8-10.8) K/ul RBC 3.87 L (4.20-5.40) M/uL Hgb 10.3 L (12.0-16.0) g/dl Hct 31.8 L (37.0-47.0) % Plt Count 171 (130-400) K/uL Neut # (Auto) 4.78 (1.40-6.50) K/uL Lymph # (Auto) 1.26 (1.20-3.40) K/uL Barber # (Auto) 0.84 H (0.11-0.59) K/uL Eos # (Auto) 0.02 (0.00-0.50) K/uL Baso # (Auto) 0.02 (0.00-0.20) K/uL Comprehensive Metabolic Panel 07/05/23 Range/Units 06:24 Sodium 138 (136-145) mmol/L Potassium 3.8 (3.5-5.1) mmol/L Chloride 103 (98-107) mmol/L Carbon Dioxide 31 (21-32) mmol/L BUN 23 (6-23) mg/dl Creatinine 0.90 (0.6-1.2) mg/dl Glucose 105 H (70-99(Fasting)) mg/dl Calcium 9.0 (8.6-10.3) mg/dl Intake and Output 07/04/23 07/05/23 07/05/23 22:59 06:59 14:59 Output Total 100 / 100 Balance -100 / 500 Output: Urine 100 / 100 Other: Other Intake Source sips Weight 80.6 kg Weight Measurement Method Built in [facility] (1) Aortic stenosis Cardiac valve disease etiology: nonrheumatic Qualified Code(s): I35.0 - Nonrheumatic aortic (valve) stenosis
[2023-07-05] MEDS: hydroCHLOROthiazide 25 MG TAB PO SCH (08:00)
[2023-07-05] MEDS: MULTIVITAMIN TAB PO SCH (08:00)
[2023-07-05] MEDS: ASPIRIN 81 MG ECTAB PO SCH (08:00)
[2023-07-05] MEDS: PANTOprazole 40 MG TAB PO SCH (08:00)
[2023-07-05] MEDS: CHOLECALCIFEROL 25 MCG (1000 UNITS) TAB PO SCH (08:00)
[2023-07-05] MEDS: CALCIUM 600MG + VIT D 400 IU TAB PO SCH (08:01)
[2023-07-05] MEDS: VIBEGRON 75 MG TAB PO SCH (08:01)
--- NOTE | 2023-07-05 08:25 | Electrocardiogram Report ---
Test Reason : Blood Pressure : / mmHG Vent. Rate : 084 BPM Atrial Rate : 084 BPM P-R Int : 138 ms QRS Dur : 108 ms QT Int : 376 ms P-R-T Axes : 048 023 043 degrees QTc Int : 444 ms Normal sinus rhythm Nonspecific T wave abnormality Abnormal ECG When compared with ECG of 04-JUL-2023 10:28, Incomplete right bundle branch block is no longer Present Criteria for Septal infarct are no longer Present Confirmed by Brad Torres ([id number]) on 07/05/2023 8:24:47 AM Referred By: REFERRED SELF Confirmed By:Marquise Torres
[2023-07-05] MEDS: IBUPROFEN 200 MG TAB PO SCH (11:55)
--- NOTE | 2023-07-05 13:32 | Hospitalist Progress Note ---
Date of Service July 05, 2023 Assessment & Plan (1) Substernal chest pain: Plan: Pleuritic chest pain Cardiac stenosis Aortic atherosclerosis --CTA: No evidence for an aortic dissection. No focal lung consolidations to suggest a pneumonia. --ECHO: Mild concentric LVH. No regional wall motion abnormality. Left ventricle systolic function is normal. EF 60 to 65%. Right ventricle is normal in size and function. Attic valve is trileaflet. Aortic valve is moderately calcified. Moderate aortic stenosis is present. Mild mitral annular calcification. Pulmonary artery systolic pressure is estimated to be 33 mmHg. Grade 1 diastolic dysfunction. 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 Advised to follow-up with vascular surgeon as outpatient Pulmonary nodule Patient aware of the nodule in the past CT Showed:6 mm indeterminate pulmonary nodule within the lingula Advised to follow-up as outpatient (2) Aortic stenosis: Plan: Echo as above Continue home medications Monitor (3) Mnire's disease: Plan: No acute symptoms (4) GERD (gastroesophageal reflux disease): Plan: Continue PPI (5) Overactive bladder: Plan: Continue home medications (6) Peripheral neuropathy: Plan: continue gabapentin (7) Hyperlipidemia: Plan: Started on Crestor Plan DVT Px: SQ Heparin CODE STATUS Full Code Admission and Anticipated Discharge Date Admission Date: July 04, 2023 Subjective Patient is seen and examined at bedside Pleuritic chest discomfort much improved Denies any nausea, vomiting, dyspnea, dizziness Offers no other complaints Review of Systems Review of Systems: All systems reviewed & are unremarkable except as noted in Subjective Physical Exam Physical Exam: Physical Exam: Vitals signs as noted above General Appearance:Moderately built and nourished, no apparent distress Head: normocephalic, Atraumatic Eyes: normal inspection, EOMI Neck: supple, Trachea midline Respiratory/Chest: Normal breath sounds, CTA, No accessory muscle use Cardiovascular: S1, S2, + murmur Abdomen/GI:Soft, Non tender, Bowel sounds present Extremities/Musculoskeletal:normal inspection, 1+ pedal edema Neurologic/Psych:AAOX3, grossly no focal neurological deficits Skin: normal color, warm Results & Data Results & Data Vital Signs (Past 12 Hours) Vital Signs Temp Pulse Pulse Resp BP Pulse Ox O2 Del Method 07/05/23 11:49 37.1 C 84 17 116/69 96 Room Air 07/05/23 09:38 81 07/05/23 07:48 36.9 C 80 17 101/59 L 94 Room Air 07/05/23 02:51 37.0 C 81 16 111/65 92 Room Air Laboratory Results Short CBC 07/05/23 Range/Units 06:24 WBC 6.94 (4.8-10.8) K/ul Hgb 10.3 L (12.0-16.0) g/dl Hct 31.8 L (37.0-47.0) % Plt Count 171 (130-400) K/uL BMP 07/05/23 06:24 Sodium 138 Potassium 3.8 Chloride 103 Carbon Dioxide 31 BUN 23 Creatinine 0.90 Glucose 105 H Calcium 9.0 (2) Aortic stenosis Cardiac valve disease etiology: nonrheumatic Qualified Code(s): I35.0 - Nonrheumatic aortic (valve) stenosis
--- NOTE | 2023-07-05 13:39 | Discharge Summary ---
Date of Service July 05, 2023 Admission HPI Per Admitting Provider She is a 73-year-old female with significant past medical history of aortic stenosis, spastic and overactive bladder, peripheral neuropathy, hyperlipidemia, osteoporosis, GERD and Mnire's disease apparently has been complaining of substernal chest pains since last night. The pain started while she was watching TV and the pain was 10 out of 10 on a scale of 0-10. Pain is worse with changing position and is associated with nausea but no vomiting. Pain also is worse with deep breathing in and out. The pain is substernal and that was going to the back, denies any radiation of pain, any palpitation, any shortness of breath or any sweating. No cough and no fever and no chills. No bowel problems but she has overactive bladder. Admission Exam Per Admitting Provider Physical Exam: Lying in bed without any acute distress Constitutional: + ill appearing and average body habitus Eyes: PERRL, conjunctivae normal, anicteric sclerae ENMT: external ear and nose normal, oropharynx normal Neck: trachea midline, no thyromegaly Respiratory: no respiratory distress Auscultation: lungs clear to auscultation bilaterally Cardiovascular: Rate/Rhythm: regular rate and regular rhythm; not tachycardic Heart Sounds: normal S1, normal S2 and + murmur (3/60 ESM over precordium and aortic area) Extremities: + edema (Trace to 1+ edema bilaterally) Gastrointestinal (Abdomen): Inspection/Auscultation: normal bowel sounds; abdomen not distended Percussion/Palpation: abdomen soft; abdomen nontender Musculoskeletal: No acute arthritis involving any of the joint Neurologic: normal touch/pain/proprioception and moves all extremities; no focal motor deficits Has resting tremors involving the upper extremities mainly which is at times. Lymphatic: no cervical or axillary lymphadenopathy Principal Diagnosis Atypical chest pain Celiac artery aneurysm Pulmonary nodule Discharge Data Allergies Allergy/AdvReac Type Severity Reaction Status Date / Time Sulfa (Sulfonamide Allergy Intermediate Rash Verified 03/16/21 00:27 Antibiotics) Consultations 07/04/23 11:41 ED Decision to Admit Stat 07/04/23 12:21 Consult Cardiology Routine Procedures Performed Laboratory Results WBC 6.94 K/ul (4.8-10.8) 07/05/23 06:24 RBC 3.87 M/uL (4.20-5.40) L 07/05/23 06:24 Hgb 10.3 g/dl (12.0-16.0) L 07/05/23 06:24 Hct 31.8 % (37.0-47.0) L 07/05/23 06:24 MCV 82.2 fL (80.0-100.0) 07/05/23 06:24 MCH 26.6 pg (25.0-34.0) 07/05/23 06:24 MCHC 32.4 g/dL (32.0-36.0) 07/05/23 06:24 RDW Std Deviation 39.1 fL (36.4-46.3) 07/05/23 06:24 RDW Coeff of Emily 13.1 % (11.5-14.5) 07/05/23 06:24 Plt Count 171 K/uL (130-400) 07/05/23 06:24 MPV 11.0 fL (9.4-12.4) 07/05/23 06:24 Immature Gran % (Auto) 0.3 % 07/05/23 06:24 Neut % (Auto) 68.8 % 07/05/23 06:24 Lymph % (Auto) 18.2 % 07/05/23 06:24 Carter % (Auto) 12.1 % 07/05/23 06:24 Eos % (Auto) 0.3 % 07/05/23 06:24 Baso % (Auto) 0.3 % 07/05/23 06:24 Neut # (Auto) 4.78 K/uL (1.40-6.50) 07/05/23 06:24 Lymph # (Auto) 1.26 K/uL (1.20-3.40) 07/05/23 06:24 Carter # (Auto) 0.84 K/uL (0.11-0.59) H 07/05/23 06:24 Eos # (Auto) 0.02 K/uL (0.00-0.50) 07/05/23 06:24 Baso # (Auto) 0.02 K/uL (0.00-0.20) 07/05/23 06:24 Immature Gran # (Auto) 0.02 K/uL (0.01-0.20) 07/05/23 06:24 ESR 40 mm/hr (0-30) H 07/04/23 07:45 PT 10.9 Seconds (9.0-12.0) 07/04/23 07:45 INR 1.0 (0.9-1.1) 07/04/23 07:45 APTT 27 Seconds (21-31) 07/04/23 07:45 PTT Ratio 1.0 07/04/23 07:45 Sodium 138 mmol/L (136-145) 07/05/23 06:24 Potassium 3.8 mmol/L (3.5-5.1) 07/05/23 06:24 Chloride 103 mmol/L (98-107) 07/05/23 06:24 Carbon Dioxide 31 mmol/L (21-32) 07/05/23 06:24 Anion Gap 4 (3-11) 07/05/23 06:24 BUN 23 mg/dl (6-23) 07/05/23 06:24 Creatinine 0.90 mg/dl (0.6-1.2) 07/05/23 06:24 Est Cr Clr Drug Dosing 59.3 ml/min 07/05/23 06:24 Est GFR ( Amer) 73.0 ml/min 07/05/23 06:24 Est GFR (Non-Af Amer) 63.0 ml/min 07/05/23 06:24 BUN/Creatinine Ratio 25.6 (10-20) H 07/05/23 06:24 Glucose 105 mg/dl (70-99(Fasting)) H 07/05/23 06:24 Calcium 9.0 mg/dl (8.6-10.3) 07/05/23 06:24 Magnesium 1.8 mg/dl (1.7-2.4) 07/05/23 06:24 Total Bilirubin 0.6 mg/dl (0.2-1.0) 07/04/23 07:45 AST 16 U/L (13-39) 07/04/23 07:45 ALT 15 U/L (7-52) 07/04/23 07:45 Alkaline Phosphatase 73 U/L (34-104) 07/04/23 07:45 Troponin I High Sens 7.4 pg/ml (0-14) 07/04/23 21:18 C-Reactive Protein 2.40 mg/dl (0-0.5) H 07/04/23 09:44 Total Protein 7.8 gm/dl (6.0-8.3) 07/04/23 07:45 Albumin 4.6 gm/dl (3.4-5.0) 07/04/23 07:45 Globulin 3.2 gm/dl (2.5-4.0) 07/04/23 07:45 Albumin/Globulin Ratio 1.4 (0.9-2) 07/04/23 07:45 Triglycerides 69 mg/dl (0-150) 07/05/23 06:24 Cholesterol 138 mg/dl (0-200) 07/05/23 06:24 LDL Cholesterol, Calc 59 mg/dl 07/05/23 06:24 VLDL Cholesterol, Calc 14 mg/dl (0-30) 07/05/23 06:24 HDL Cholesterol 65 mg/dl 07/05/23 06:24 Cholesterol/HDL Ratio 2.1 (0-5) 07/05/23 06:24 Lipase 11 U/L (11-82) 07/04/23 07:45 Impressions Chest X-Ray 07/04/23 07:33 XR chest 1V portable HISTORY: Chest pain, nonspecific COMPARISON: None. FINDINGS: The lungs are clear. Cardiac silhouette is normal in size. No pleural effusions. No pneumothorax. IMPRESSION: No acute process. ACT 112: Negative or not required by law. Electronically signed by: Abelardo Moeller M.D. 07/04/2023 9:29 AM Chest CTA 07/04/23 09:22 CHEST CTA for AORTIC DISSECTION CT DOSE: 1468. mGy.cm HISTORY: Chest and back pain. Assess for an aortic dissection. TECHNIQUE: Multiaxial CT images of the chest were performed both before and after the intravenous administration of contrast to evaluate the aorta. 3D/MIP images were also obtained. Sagittal and coronal reformations were also reviewed. A dose lowering technique was utilized adhering to the principles of ALARA. COMPARISON STUDY: None. FINDINGS: Noncontrast imaging through the chest shows no evidence for an intramural hematoma within the thoracic aorta. There is a normal caliber thoracic aorta with no evidence for a dissection. Mild calcified plaque within the thoracic aorta. The central pulmonary arteries are patent. No acute fractures within the chest. No pneumothorax. The central airways are patent. Mild dependent changes seen at the lung bases. A 3 mm subpleural nodule on the left major fissure best seen on image 90. A 6 mm nodule within the base of the lingula on image 131. This is partially obscured by the motion artifact. No focal lung consolidations to suggest a pneumonia. No evidence for pulmonary edema. Punctate calcified granuloma within the right lung apex. Normal thyroid gland. Limited views of the upper abdomen demonstrate a normal liver and adrenal glands. Punctate calcified granulomas seen within the spleen. Normal esophagus. The heart is normal in size. No pleural or pericardial effusions. No mediastinal or hilar lymphadenopathy. IMPRESSION: 1. No evidence for an aortic dissection. 2. No focal lung consolidations to suggest a pneumonia. 3. A 6 mm indeterminate pulmonary nodule within the lingula. Please refer to the chart below for recommended follow-up. 4. Additional findings as described above. Please refer to below summary of Fleischner criteria recommendations for follow- up of incidental CT nodules (Jai Nguyen, Guidelines for management of small pulmonary nodules detected on CT scans: A statement from the Fleischner Society, Radiology 237: [phone].) SOLID NODULES Solitary nodule size: <6 mm * Low risk patients: no follow-up needed * high risk patients: optional CT at 12 months Solitary nodule size: 6-8 mm * Low risk patients: follow-up at 6-12 months, then consider further follow-up at 18-24 months * high risk patients: initial follow-up CT at 6-12 months and then at 18-24 months if no change Solitary nodule size: >8 mm * either low or high risk patients - consider follow-up CT at 3 months, and/or CT-PET, and/or biopsy Multiple nodules size: <6 mm * Low risk patients: no routine follow-up * high risk patients: optional CT at 12 months Multiple nodules size: 6-8 mm * Low risk patients: follow-up at 3-6 months, then consider further follow-up at 18-24 months * high risk patients: follow-up at 3-6 months, then at 18-24 months if no change Multiple nodules size: >8 mm * Low risk patients: follow-up at 3-6 months, then consider further follow-up at 18-24 months * high risk patients: follow-up at 3-6 months, then at 18-24 months if no change Note: newly detected indeterminate nodule in persons 35 years of age or older. * Low risk patients: minimal or absent history of smoking and/or other known risk factors * high risk patients: history of smoking or of other known risk factors (e.g. first degree relative with lung cancer, or exposure to asbestos, radon, uranium) * if a nodule up to 8 mm is partly solid or is ground glass further follow-up is required after 24 months to exclude possible slow growing adenocarcinoma (KIRK) SUBSOLID NODULES Solitary pure ground-glass nodule * nodule size <6 mm - no CT follow-up required * nodule size >=6 mm - follow-up CT at 6-12 months, then every 2 years until 5 years Solitary part-solid nodule * nodule size <6 mm - no CT follow-up required * nodule size >=6 mm - follow-up CT at 3-6 months. If unchanged, and solid co mponent remains <6 mm, then annual follow-up for 5 years Multiple subsolid nodules * nodule size <6 mm - follow-up CT at 3-6 months, consider further follow-up at 2 and 4 years if stable * nodule size >=6 mm - follow-up CT at 3-6 months, subsequent management based on the most suspicious nodule(s) ACT 112: Positive. There are findings on this exam that require communication between the performing entity and the patient following Patient Test Result Information Act ([place] Act 112) guidelines. Electronically signed by: Abelardo Moeller M.D. 07/04/2023 10:53 AM Ordered Studies 07/04/23 09:22 CT angio chest dissec wo/w con Stat Hospital Course (1) Substernal chest pain: Pleuritic chest pain Cardiac stenosis Aortic atherosclerosis --CTA: No evidence for an aortic dissection. No focal lung consolidations to suggest a pneumonia. --ECHO: Mild concentric LVH. No regional wall motion abnormality. Left ventricle systolic function is normal. EF 60 to 65%. Right ventricle is normal in size and function. Attic valve is trileaflet. Aortic valve is moderately calcified. Moderate aortic stenosis is present. Mild mitral annular calcification. Pulmonary artery systolic pressure is estimated to be 33 mmHg. Grade 1 diastolic dysfunction. 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 Advised to follow-up with vascular surgeon as outpatient Pulmonary nodule Patient aware of the nodule in the past CT Showed:6 mm indeterminate pulmonary nodule within the lingula Advised to follow-up as outpatient (2) Aortic stenosis: Echo as above Continue home medications Monitor (3) Mnire's disease: No acute symptoms (4) GERD (gastroesophageal reflux disease): Continue PPI (5) Overactive bladder: Continue home medications (6) Peripheral neuropathy: continue gabapentin (7) Hyperlipidemia: Started on Crestor Plan DVT Px: SQ Heparin CODE STATUS Full Code Disposition Patient not interested in rehab Plan to be discharged home today Total Time Total Time Spent Total Time Spent (In Minutes): 55 minutes Discharge Plan Discharge Items Patient Disposition: Home - Self-Care Reason For Visit: CHEST PAIN Discharge Diagnosis: Atypical chest pain Celiac artery aneurysm Pulmonary nodule Activity: Per Instructions section Exercise/Sports: Wait until after follow-up appointment Non-emergency contact: Primary Care Provider, Surgeon and Pharmacy Resident Call non-emergency contact if: you have any medication questions, your symptoms worsen, your pain is concerning for you and you have a fever Follow-up/Referrals: Elio Marino MD [Physician] - (Date & Time 08/03/2023 11:00 AM Provider Elio Marino MD Department Cardiology, [facility] ) Luis Courtney MD [Primary Care Provider] - (Date & Time 07/10/2023 3:00 PM Provider Luis Courtney MD Department [facility] *Please note that your previously scheduled appointment for today at 6:20pm has been cancelled.*) Diet: Heart Healthy Addtl Attending Provider Instructions: Follow-up with your primary care physician on 07/10/2023 3:00 PM Follow-up with your wood heel flap rubber Dr. Marino on 08/03/2023 11:00 AM Consider following with your vascular surgeon for further evaluation of celiac artery aneurysm as advised. Seek immediate medical attention if your symptoms reoccur or worsen Please take all medications as instructed on discharge list below. Please call if you have any questions or problems. You can reach a [facility] hospitalist on duty at [facility] 24 hours a day by calling [phone] Pending Studies at Discharge: No Stand-Alone Forms: My [facility], Smoking Cessation Medications and DC Order Prescriptions: New famotidine [Acid Trick Rodeo Rider (famotidine)] 10 mg Tablet 10 mg PO BID Qty: 30 0RF ibuprofen 200 mg Tablet 200 mg PO TID 7 Days Qty: 21 0RF rosuvastatin 5 mg Tablet 5 mg PO HS Qty: 30 1RF Continued multivitamin Tablet 1 tab PO DAILY aspirin 81 mg Tablet,Delayed Release (Dr/Ec) 81 mg PO DAILY omeprazole 20 mg capsule,delayed release(DR/EC) 20 mg PO DAILYBB hydrochlorothiazide 25 mg tablet 25 mg PO DAILY cholecalciferol (vitamin D3) [Vitamin D3] 25 mcg (1,000 unit) Capsule 25 mcg PO DAILY calcium carbonate-vitamin D3 [Calcium 600 + D(3)] 600 mg(1,500mg) -400 unit Tablet 1 tab PO DAILY gabapentin 300 mg capsule 300 mg PO TID Myrbetriq 50 mg tablet extended release 24 hr 50 mg PO QAM Discharge Orders: Discharge Order (Routine); Ordered 07/05/23 Ordered By: Renato Gallo Admission Data Admit Date/Time: 07/04/23 12:21 Attending Provider: Renato Gallo Admit Provider: Dylan Lynn Primary Care Provider: Luis Courtney. Other Providers: Dylan Lynn; Salma Fernandez; Chuck Ramos; Elio Marino; Lawrence Toledo; Juanjose Peres; Luis Marion; Jesusita Judge; Rula Greenwood Ashley M.; Jayro Maldonado; Js Soto; Mayte Erickson; Day Turpin; Robb Marshall George
[2023-07-05] MEDS ORDERED: ROSUVASTATIN CALCIUM 5 MG TAB PO SCH (21:00)
[2023-07-05] MEDS ORDERED: FAMOTIDINE 10 MG TABLET PO SCH (21:00)
== END 2023-07-05 15:14 | disposition home or self-care (01) | DRG 313 ==
LOC: ED 07:21 → SUATTDRO 12:21 → INTOOBSV 12:21 → EDINP 12:21 → 2S 20:46